=== PATIENT | female | born 1960 | race Caucasian/White ===

== ENCOUNTER 2018-02-21 10:49 | Outpatient (CLI) | payer OTHER, SELFPAY ==
--- NOTE | 2018-02-21 15:54 | DI.RAD_ITS ---
SYMPTOMS/DIAGNOSIS: PAIN IN LEFT HIP S/P FALL, M25.552 PELVIS AND LEFT HIP: The hip joint spaces are well maintained. There is no evidence of fracture or dislocation. IMPRESSION: Negative pelvis and left hip.
== END 2018-02-21 11:09 ==
PROVIDERS: PCP Family Medicine; Visit Provider Nurse Practitioner Family
DX: M25.552 Pain in left hip (principal); W19.XXXA Unspecified fall, initial encounter
CPT/HCPCS: 73502

== ENCOUNTER 2018-03-05 01:45 | Outpatient (CLI) | payer OTHER, SELFPAY ==
--- NOTE | 2018-03-05 16:15 | DI.MAMMO_ITS ---
SYMPTOM/DIAGNOSIS: SCREENING, Z12.31 BILATERAL SCREENING MAMMOGRAMS: Mammograms were interpreted according to the usual protocol including computer analysis with CAD system, tomosynthesis and C view imaging. Comparison is made with exams from 2013 through 2017. The breasts are composed of scattered fibroglandular densities. No suspicious masses or suspicious microcalcifications are seen. There has been no significant change. IMPRESSION: Category 1-B, negative mammogram. Yearly screening mammography is recommended. [facility] ASSESSMENT OF FINDINGS: Negative. Category 1. Patient will receive a letter notifying them of these results. BI-RADS category B. There are scattered areas of fibroglandular density.
== END 2018-03-05 02:05 ==
PROVIDERS: PCP Family Medicine; Visit Provider Nurse Practitioner Family
DX: Z12.31 Encounter for screening mammogram for malignant neoplasm of breast (principal)
CPT/HCPCS: 77063; 77067

== ENCOUNTER 2019-04-08 01:02 | Outpatient (CLI) | payer OTHER, SELFPAY ==
--- NOTE | 2019-04-08 15:47 | DI.MAMMO_ITS ---
EXAM: MG MAMMO SCREENING CLINICAL HISTORY: screening,Z12.39. TECHNIQUE: Bilateral full field digital CC and MLO mammographic images were obtained with 3D tomosyn thesis and utilizing computer aided detection (CAD). COMPARISON: Available for comparison. FINDINGS: Masses/Architectural Distortion: None seen. Microcalcifications: No suspicious pleomorphic-type are seen. Skin Thickening/Nipple Retraction: None. IMPRESSION: 1. No significant interval change with no specific features of malignancy noted. 2. Unless there is more urgent need, screening mammography is recommended, as per [place] [employer] guidelines. ACR BI-RAD Category- 1 Negative Breast Density - Category B - Scattered areas of fibroglandular density A negative radiographic report should not delay biopsy if a dominant or clinically suspicious mass is present. Up to ten percent of cancers are not identified on mammography. A negative report may reinforce clinical impression. Adenosis and dense breasts may obscure an underlying neoplasm. False positive reports average 6 to 10%. Patient will receive a letter notifying them of these results.
== END 2019-04-08 01:22 ==
PROVIDERS: PCP Family Medicine; Visit Provider Family Medicine
DX: Z12.31 Encounter for screening mammogram for malignant neoplasm of breast (principal)
CPT/HCPCS: 77063; 77067

== ENCOUNTER 2020-03-30 11:18 | Outpatient (REF) | payer BC, SELFPAY ==
--- NOTE | 2020-03-30 07:30 | PAPFT_PTH ---
PATIENT: Bibiana Bright LOC: [facility] ([facility]) U#:[id number] AGE/SX: 59/F ROOM: RE03/30/[address]: Marcela Casas APRN : 1960 BED: DIS: 03/30/2020 SPEC #: [id number] RECD: 03/30/20 13:06 STATUS: JAMESTameka RESindhu #: [id number] JIMI: 03/30/20 07:[address]: Marcela Casas DEPT: [facility] Cytology RECD BY: Archana Cole ENTERED: 03/30/20 13:06 SP TYPE: PAPFT MU DR: Elisa Barone MD Tissues: 1 - CX/ENDOCX FOR PAP SMEARS Procedures: PAP THIN PREP/UVM Screening HPV DNA PROBE Comments: [id number]
== END 2020-03-30 11:38 ==
LOC: LBN 11:18
PROVIDERS: PCP Family Medicine
DX: Z12.4 Encounter for screening for malignant neoplasm of cervix (principal); Z11.51 Encounter for screening for human papillomavirus (HPV)
CPT/HCPCS: 88142; 87624

== ENCOUNTER 2020-04-01 02:57 | Outpatient (CLI) | payer BC, SELFPAY ==
[2020-04-01 12:45] LABS: ALT 31 U/L (14-59); AST 17 U/L (15-37); Albumin 4.2 g/dL (3.4-5.0); Alkaline Phosphatase 67 U/L (46-116); Anion Gap 6.9 mmol/L (3-11); BUN 12 mg/dL (7-18); Bilirubin, Total 0.4 mg/dL (0.2-1.0); CO2 31.1 mmol/L (21.0-32.0); CREATININE 0.79 mg/dL (0.55-1.02); Calculated LDL 140 mg/dL (<100); Chloride 103 mmol/L (98-107); Cholesterol 228 mg/dL (<200); Glucose 91 mg/dL (74-106); HDL Cholesterol 51 mg/dL (40-60); Potassium 4.4 mmol/L (3.5-5.1); Sodium 141 mmol/L (136-145); Total Protein 7.1 g/dL (6.4-8.2); Triglyceride 185 mg/dL (<150)
== END 2020-04-01 03:17 ==
PROVIDERS: PCP Family Medicine
DX: Z00.00 Encounter for general adult medical examination without abnormal findings (principal); Z13.220 Encounter for screening for lipoid disorders
CPT/HCPCS: 36415; 80053; 80061

== ENCOUNTER 2020-04-13 02:32 | Outpatient (CLI) | payer BC, SELFPAY ==
--- NOTE | 2020-04-13 15:38 | DI.MAMMO_ITS ---
EXAM: MAMMO SCREENING CLINICAL HISTORY: screening,Z12.39 TECHNIQUE: Mammograms were interpreted according to the usual protocol including computer analysis w [facility] [facility] CAD system, tomosynthesis and C-view imaging. COMPARISON: 2011 through 2019 FINDINGS: The breasts are composed of scattered fibroglandular densities, Breast Density category B. No suspicious masses or suspicious microcalcifications are seen. No skin thickening or abnormal axillary lymph nodes are seen. There has been no significant change from prior exams. IMPRESSION: BI-RADS Category 1, Negative mammogram Yearly screening mammography is recommended. Breast Density - Category B, scattered fibroglandular densities. A negative radiographic report should not delay biopsy if a dominant or clinically suspicious mass is present. Up to ten percent of cancers are not identified on mammography. A negative report may reinforce clinical impression. Adenosis and dense breasts may obscure an underlying neoplasm. False positive reports average 6 to 10%. Patient will receive a letter notifying them of these results.
== END 2020-04-13 02:52 ==
PROVIDERS: PCP Family Medicine
DX: Z12.31 Encounter for screening mammogram for malignant neoplasm of breast (principal)
CPT/HCPCS: 77063; 77067

== ENCOUNTER 2020-04-19 16:08 | Outpatient (REF) | payer BC, SELFPAY ==
[2020-04-19 17:01] LABS: Bilirubin Negative (Negative); Blood Large (Negative); Clarity Cloudy (Clear); Glucose Negative (Negative); Ketones Negative (Negative); Leukocyte Esterase Small (Negative); Nitrite Positive (Negative); Specific Gravity >= 1.030 (1.005-1.025); Urobilinogen 0.2 EU/dL (Up TO 0.2); pH 6.5 (5-8)
[2020-04-19 17:13] LABS: Bacteria Many HPF (Negative); Crystals Few Calcium Oxalate HPF (Negative); Epithelial Cells Few HPF (Negative); Mucus Moderate (Negative); RBC >50 HPF (0-2)
[2020-04-19 17:14] LABS: C & S Indicated? Yes; Casts Negative LPF (Negative)
== END 2020-04-19 16:28 ==
LOC: LBN 16:08
PROVIDERS: PCP Family Medicine
DX: R30.0 Dysuria (principal)
CPT/HCPCS: 87077; 81003; 81015; 87086; 87186

== ENCOUNTER 2020-05-20 10:00 | Outpatient (REF) | payer BC, SELFPAY ==
[2020-05-20 10:21] LABS: Bilirubin Negative (Negative); Blood Small (Negative); Clarity Clear (Clear); Glucose Negative (Negative); Ketones Negative (Negative); Leukocyte Esterase Negative (Negative); Nitrite Negative (Negative); Specific Gravity 1.025 (1.005-1.025); Urobilinogen 0.2 EU/dL (Up TO 0.2)
[2020-05-20 10:34] LABS: Bacteria Negative HPF (Negative); C & S Indicated? No; Casts Negative LPF (Negative); Crystals Negative HPF (Negative); Epithelial Cells Few HPF (Negative); Mucus Negative (Negative); Other Cells Rare Renal (Negative); RBC 0-2 HPF (0-2); WBC 0-2 HPF (0-5)
== END 2020-05-20 10:01 | disposition home or self-care (01) ==
LOC: LBN 10:00
PROVIDERS: PCP Family Medicine
DX: R31.9 Hematuria, unspecified (principal)
CPT/HCPCS: 81003; 81015

== ENCOUNTER 2020-06-04 01:41 | Outpatient (CLI) | payer BC, SELFPAY ==
--- NOTE | 2020-06-04 14:00 | NS.NUTBLAN_ITS ---
59 year old female referred for medical nutrition therapy for hyperlipidemia. BMI wnl. Recent labs: chol: 228, LDL: 140, HDL: 51, tri. Bibiana reports PCP does not want to start a lipid lowering agent at this time. Will check lipids again in summer 2020. Diet recall indicates well balanced, low cholesterol meals with emphasis on complex carbs, lean protein and non starchy vegetables. Also reports walking on treadmill daily for 20 minutes. Includes good sources of healthy fats such as olive oil, nuts and avacado. Overall, Bibiana follows a heart healthy life style. Stopped smoking a couple years ago and maintains her weight with exercise and limiting junk foods. Session today reviewed principles of Mediterranean diet and encouraged continued exercise of 150 minutes per week. Provided written materials and contact information for follow up information as needed. No follow up appt scheduled at this time.
== END 2020-06-04 01:42 | disposition home or self-care (01) ==
LOC: DS 01:41
PROVIDERS: PCP Family Medicine; Visit Provider Dietitian, Registered
DX: E78.5 Hyperlipidemia, unspecified (principal); Z71.3 Dietary counseling and surveillance
CPT/HCPCS: 97802

== ENCOUNTER 2020-09-02 11:23 | Outpatient (REF) | payer BC, SELFPAY | END 2020-09-02 11:24 | disposition home or self-care (01) | LOC: LBN 11:23 | PROVIDERS: PCP Family Medicine; Visit Provider Nurse Practitioner Family | DX: N39.0 Urinary tract infection, site not specified (principal) | CPT/HCPCS: 87077; 87086; 87186 ==

== ENCOUNTER 2020-09-27 15:03 | Outpatient (CLI) | payer BC, SELFPAY ==
--- NOTE | 2020-09-27 13:30 | DI.RAD_ITS ---
Exam(s) XR THUMB LT EXAM: XR THUMB LT CLINICAL HISTORY: pain in thumb. TECHNIQUE: 2D digital imaging was performed. COMPARISON: No exams were available for comparison FINDINGS: Three dedicated views of the left thumb reveal 1-2 millimeter ossified density off the lateral aspect of the interphalangeal joint, possibly significant. The metacarpophalangeal joint appears unremarka ble. Some degenerative changes evident at the articulation between the thumb metacarpal and trapeziu m. There is no radiopaque foreign body. IMPRESSION: DATA REPOSITORY: RADIATION DOSE DELIVERED:
== END 2020-09-27 15:04 | disposition home or self-care (01) ==
LOC: DIORS 15:42
PROVIDERS: PCP Family Medicine; Referring Provider Family Medicine; Visit Provider Physician Assistant Surgical
DX: M19.042 Primary osteoarthritis, left hand (principal)
CPT/HCPCS: 73140

== ENCOUNTER 2020-11-09 09:40 | Outpatient (CLI) | payer BC, SELFPAY | END 2020-11-09 09:41 | disposition home or self-care (01) | LOC: LBO 09:41 | PROVIDERS: PCP Family Medicine; Visit Provider Physician Assistant | DX: E04.1 Nontoxic single thyroid nodule (principal) | CPT/HCPCS: 36415; 84443 ==

== ENCOUNTER 2021-06-08 01:15 | Outpatient (CLI) | payer BC, SELFPAY ==
--- NOTE | 2021-06-08 07:45 | DI.MAMMO_ITS ---
Exam(s) MAMMO SCREENING EXAM: MAMMO SCREENING CLINICAL HISTORY: screening,Z12.39. TECHNIQUE: Bilateral full field digital CC and MLO mammographic images were obtained with 3D tomosyn thesis and utilizing computer aided detection (CAD). COMPARISON: Prior mammograms were reviewed, the most recent being March 2020. FINDINGS: There has been no significant change in the appearance and distribution of the fibroglandular tissue. There are no new spiculated masses nor malignant appearing microcalcification groups. There is no significant architectural distortion nor skin thickening-retraction. IMPRESSION: No radiographic evidence of malignancy. BI-RADS Category 1 - Negative Breast Density - Category B - Scattered areas of fibroglandular density Breast density Category C or D implies that the patient has dense breast tissue. Dense breast tissue can make it harder to find cancer on a mammogram. Dense breast tissue is also associated with an incr eased risk of breast cancer. This information about the result of the mammogram report was provided to the patient to raise their awareness. Use this report when you speak with the patient about their risks for breast cancer, which includes their family history. At that time, you may recommend additional screening tests (Ultrasoun d or MRI) as these tests may add significant information. A negative radiographic report should not delay biopsy if a dominant or clinically suspicious mass is present. Up to ten percent of cancers are not identified on mammography. A negative report may reinforce clinical impression. Adenosis and dense breasts may obscure an underlying neoplasm. False positive reports average 6 to 10%. Patient will receive a letter notifying them of these results.
== END 2021-06-08 01:35 ==
DX: Z12.31 Encounter for screening mammogram for malignant neoplasm of breast (principal)
CPT/HCPCS: 77063; 77067

== ENCOUNTER 2021-06-13 14:43 | Outpatient (REF) | payer BC, SELFPAY ==
[2021-06-15 12:03] LABS: COVID-19 RT-PCR UVMMC Result Negative (Negative)
== END 2021-06-13 14:44 | disposition home or self-care (01) ==
LOC: LBN 14:43
PROVIDERS: Visit Provider Family Medicine
DX: Z20.822 Contact with and (suspected) exposure to COVID-19 (principal); R09.89 Other specified symptoms and signs involving the circulatory and respiratory systems
CPT/HCPCS: U0003

== ENCOUNTER 2021-08-09 02:44 | Outpatient (CLI) | payer BC, SELFPAY ==
[2021-08-09 13:09] LABS: ALT 33 U/L (14-59); AST 20 U/L (15-37); Albumin 4.4 g/dL (3.4-5.0); Alkaline Phosphatase 76 U/L (46-116); Anion Gap 7.9 mmol/L (3-11); BUN 10 mg/dL (7-18); Bilirubin, Total 0.3 mg/dL (0.2-1.0); CO2 30.1 mmol/L (21.0-32.0); CREATININE 0.6 mg/dL (0.55-1.02); Calcium 8.7 mg/dL (8.5-10.1); Calculated LDL 157 mg/dL (<100); Chloride 105 mmol/L (98-107); Cholesterol 234 mg/dL (<200); Glucose 98 mg/dL (74-106); HDL Cholesterol 60 mg/dL (40-60); Potassium 4.7 mmol/L (3.5-5.1); Sodium 143 mmol/L (136-145); Total Protein 7.1 g/dL (6.4-8.2); Triglyceride 86 mg/dL (<150)
== END 2021-08-09 02:45 | disposition home or self-care (01) ==
LOC: LOS 02:44
DX: E78.5 Hyperlipidemia, unspecified (principal); M32.9 Systemic lupus erythematosus, unspecified; J38.2 Nodules of vocal cords; F39 Unspecified mood [affective] disorder
CPT/HCPCS: 36415; 80053; 80061

== ENCOUNTER 2021-09-09 07:30 | Day surgery (SDC) | payer BC, SELFPAY ==
--- NOTE | 2021-09-08 14:28 | W.PM.HP.N ---
Assessment and Plan Assessment and plan (1) Tubular adenoma: Status: Acute Assessment and plan: Plan:Colonscopy w/ MAC The?patient will be scheduled by my office. The pt understands that they need to do a bowel prep and the importance of hydration during this.? The patient understands there is a theoretical risk of renal failure.? For healthy patients we use Gatorade/Miralax Prep.? ?For anyone with renal concerns- GoLytely will be used. Plavix and coumadin will need to be held except in unusual circumstances. ? Patients in A. Fib do not need to be bridged with Lovenox or on CVA prophylaxis.? A baby ASA can be continued but full dose ASA needs to be stopped for 10 days prior to the procedure. A complete H & P is required within 30 days of the procedure.? MAC is used for the colonoscopy.? Colonoscopy does not require antibiotics prophylaxis. Thank you for allowing me to participate in the care of this Patient.? A copy of the Endoscopy report will be forwarded to your office. Informed consent is obtained for the procedural (explained in simple layman's terms that?the pt and/or family could understand) explaining risks vs benefits and alternatives to the procedure and consequences if we do not do the procedure and need/rational for the procedure. Risks include but are not limited to: bleeding, infection, perforation of colon.? This would necessitate emergency surgery to repair the damage w/ possible ostomy; and other associated complications w/ the required surgery. ? Also complications of anesthesia including aspiration, KY/CVA/. I discussed with the?patient would they could expect during the procedure, post procedure and recovery time and risks.? The patient understands that they need to have a ride home after the procedure.? The patient was given all this information in writing and expressed understanding. to your office.? If there are any questions or concerns please feel free to contact our office.? (2) Tobacco use disorder: Status: Resolved (3) Systemic lupus erythematosus: Status: Acute History of Present Illness Narrative: PreOp 08/04 60 y/o female with history of lupus presents for colonoscopy screening pre-op. Her last screening was in 2016, which was remarkale for tubular adenomatous polyp. She denies a family history of colon cancer. She denies any changes in bowel habits including bloody or black tarry stools, abdominal pain, diarrhea or constipation. She denies constitutional symptoms. Denies use of marijuana or any other recreational or illegal drugs. zShe has noticed increase joint pain in hips. Hx of Lupus. She denies chest pain, palpitations, dyspnea or dyspnea with exertion. She denies prior history or family history of adverse reactions or complications with anesthesia. The patient denies any history of stroke, KY, seizures, bleeding or clotting disorders. She denies having any implanted metal in her body. Patient is here today for colonoscopy. She did complete a bowel prep. The resulting effluent is a clear yellow. She had no bleeding. She is not currently having any abdominal pain, nausea. She is not currently having any chest pain/pressure or shortness of breath. She has no productive cough or fever, I YOLIE George in the office, she has had no changes in her medication or her health status. All questions are answered to her satisfaction and she is stable for the procedure today. Review of Systems All systems reviewed & are unremarkable except as noted in HPI and below PFSH All Active Problems Colon cancer screening (Acute) Tubular adenoma (Acute 03/29/12) colonoscopy 03-31 Systemic lupus erythematosus (Acute 02/05/12) Medical History Bleeding hemorrhoid Bursitis, shoulder Cervical adenopathy CMC arthritis, thumb, degenerative Injection: 04/04/2021 COVID-19 (~04/15/21) Dysuria Gynecologic exam normal Hematuria Hyperlipidemia lupus 2004 Mood disorder Pain of left thumb Pain, eye, right Rectal bleed (07/07/13) assoc. with menses Sinusitis Vocal cord nodule Surgical History Colonoscopy - IV Sedation (08/25/16) History of bilateral ligation of fallopian tubes Family History maternal aunt Crohn's disease Father , age 78 Diabetes Heart disease COPD (chronic obstructive pulmonary disease) Mother No problems noted. Daughter No problems noted. Daughter No problems noted. Social History Smoking/Tobacco Use Status: Former Tobacco Use Quit Date: 12/10/19 Counseling given: counseling >3 minutes (on maintaining non-smoking status) Smoking risk assessment performed?: Yes Alcohol Intake: current Alcohol Intake frequency: 0-2 drinks per day Alcohol type: beer and wine Drug use: Never Substance use type: does not use Counseling given: No Counseling provided: other Caregiver/Support person: No Household members: spouse Housing: house Communication Needs: None Do you need help understanding health information?: Rarely Pets and animals: Yes (Lab) Pets and animals: dog(s) Sexually active: Yes Do you think of yourself as: straight/heterosexual Current gender identity: female What is your relationship status?: How often do you talk on the phone with friends or family?: three or more times per week How often do you get together with friends or relatives?: twice per week Do you belong to any clubs or organized social groups?: no Panel score (0-1 are the most socially isolated patients): 2 Doris/Pentecostalism: Scientologist Special doris needs: No Seatbelt use: always Helmet use: Yes Helmet use: always Drive intox or ride w/intox lokie driver: No Do you feel safe at home: Yes Do you feel safe in your relationship?: Yes Victim of physical abuse: No Victim of emotional abuse: No Victim of sexual abuse: No Would you like helpful sources: No Meds Allergies and Home Medications Allergies Allergy/AdvReac Type Severity Reaction Status Date / Time No Known Drug Allergies Allergy Verified 09/09/21 07:41 Home Medications Medication Instructions Recorded Confirmed Type bupropion HCl 150 mg 24 hr tablet, 150 mg PO QAM #90 tabs 04/04/21 09/09/21 Rx extended release bupropion HCl 300 mg 24 hr tablet, 300 mg PO QAM #90 tabs 04/04/21 09/09/21 Rx extended release Exam Narrative Exam Narrative: PHYSICAL EXAM GENERAL APPEARANCE: Alert, healthy appearance, oriented, in no acute distress SKIN: No rashes.? No breakdown HYDRATION: Well hydrated HEAD, EYES, EARS, NECK, THROAT: Head is normocephalic, pupils equal, round, reactive to light and accommodation, ocular movement intact, sclera clear and no jaundice. ?Dentition intact. No sore throat.? No jaw pain. No thrush NECK: Supple, Trachea midline. No JVD. LUNGS: normal respiration/nl chest excursion. ?Clear to auscultation B/l no R/R/W ?HEART: Regular rate and rhythm, EXTREMITY: No edema or cyanosis? no leg pain, redness, swelling.? No IV infiltration ABDOMEN: non tender to palpation, no masses or distention, no hernias. Normal bowel sounds NEURO: no focal neuro deficits.
--- NOTE | 2021-09-08 20:41 | PDOC.DSDIS_ITS ---
Discharge Plan Disposition Patient Disposition: HOME Condition: Good Discharge Details Reason For Visit: colon scope Attending Provider: Sabra Martinez Primary Care Provider: Marcela Casas Home Meds and New Rx's Prescriptions: Continued bupropion HCl 150 mg tablet extended release 24 hr 150 mg PO QAM Qty: 90 3RF bupropion HCl 300 mg tablet extended release 24 hr 300 mg PO QAM Qty: 90 3RF Discontinued bisacodyl [Dulcolax (bisacodyl)] 5 mg tablet,delayed release (DR/EC) 5 mg PO ONCE Qty: 4 0RF Rx Instructions: Take according to provider's instructions for colonoscopy prep. polyethylene glycol 3350 17 gram/dose powder 17 g PO ONCE Qty: 238 0RF Rx Instructions: To be taken as directed by prescriber's office for colonoscopy prep. Discharge Instructions Additional Instructions: DSU Colonoscopy Post- Op Instructions Instructions for Everyone who is given Anesthesia: For your safety, please do the following for the next twenty-four (24) hours: *Do Not operate a motor vehicle (car, truck, motorcycle, etc.) *Do Not drink alcoholic beverages or use any recreational drugs for the first 24 hours or while taking pain medications. The medications in your body may have a reaction that can be dangerous. *Do Not make any important decisions or sign any important papers. Findings: -Internal and external hemorrhoids -Minor diverticula -Small polyp Follow up: -My office will send a letter in 2 to 3 weeks time, detailing as to what type of polyp it is and when we want you to repeat the colonoscopy, most likely 5 to 7 years. -Make sure you are moving your bowels on a regular basis and not straining to go to the bathroom. 1. No lifting over 20 pounds or strenuous activity for the first 24 hours after your procedure. After 24 hours there are no restrictions on your activity but you may feel fatigued for a few days. 2. After you arrive home you may have a light meal and return to your normal diet as you can tolerate it without feeling sick to your stomach. 3. You may have a bloated, gaseous feeling in your belly (abdomen) after a colonoscopy. Passing gas and belching will help. Walking or lying down on your left side with your knees flexed may relieve the discomfort. Call the office at [phone] (Office) or [phone] (Hospital) right away if you notice any of the following: a.Vomiting of blood or ?coffee ground stools?. b.Rectal bleeding 1Tbsp, blood clots or continuous bleeding. c.Severe belly (abdominal) pain. d.A hard distended belly (abdomen) and an inability to pass gas. 4. Please don?t expect to have a normal BM (bowel movement) for 2-3 days after your procedure. 5. If there are questions regarding the findings of your procedure, please contact your doctor 6. If you are unable to contact your doctor with a problem, contact the hospital at [phone]. 7. Continue all your regular medications unless directed otherwise. I understand the above instructions and have no questions. Signature of Patient or Adult Escort Name of Responsible Adult Escort Signature of Nurse Date/Time Activity:: See above Diet:: See above Discharge Orders Discharge Orders: Discharge Order (Routine); Ordered 09/08/21 Ordered By: Sabra Martinez DS: Diagnosis Discharge Diagnosis (1) Tubular adenoma: Status: Acute (2) Tobacco use disorder: Status: Resolved (3) Systemic lupus erythematosus: Status: Acute
[2021-09-09 07:39] VITALS: BP 122/69; PULSE 65; RESP 16; TEMP 36.6; O2SAT 99
[2021-09-09] MEDS: Lactated Ringers 1,000 ML 80 ML IV (07:48)
--- NOTE | 2021-09-09 08:09 | W.ANESPRE ---
General Info Date of Service Date Performed: 09/09/21 Height: 5 ft 6.5 in Weight: 76.657 kg Body Mass Index (BMI): 26.9 Surgical Procedure: Operation Date: 09/09/21 08:20 Proposed Procedure Side Surgeon damian Colonoscopy Sabra Martinez DO Meds Allergies and Home Medications Allergies Allergy/AdvReac Type Severity Reaction Status Date / Time No Known Drug Allergies Allergy Verified 09/09/21 07:41 Home Medication Medication Instructions Recorded bupropion HCl 150 mg 24 hr tablet, 150 mg PO QAM #90 tabs 04/04/21 extended release bupropion HCl 300 mg 24 hr tablet, 300 mg PO QAM #90 tabs 04/04/21 extended release Current Visit Medications: Current Medications Generic Name Dose Route Start Last Admin Trade Name Freq PRN Reason Stop Dose Admin Hyoscyamine Sulfate 0.125 mg 09/08/21 09:36 Hyoscyamine 0.125 Mg Sl/Oral/Chew SL DIRECTED PRN Ringer's Solution 1,000 mls @ 80 mls/hr 09/09/21 06:00 09/09/21 07:48 IV 10/08/21 23:59 80 mls/hr INFUSION WILFRID Administration IV Miscellaneous Supplies 1 each 09/09/21 06:00 Iv Access IV 10/08/21 23:59 DIRECTED WILFRID Ondansetron HCl 4 mg 09/08/21 09:36 Ondansetron 4 Mg/2 Ml Vial IVP Q4H PRN PRN Nausea / Vomiting Sodium Chloride 0 ml 09/09/21 06:00 Normal Saline Flush 10 Ml Syr IV 10/08/21 23:59 PRN PRN Sodium Chloride 0 ml 09/09/21 06:00 Normal Saline 10 Ml Vial IJ 10/08/21 23:59 DIRECTED PRN Sterile Water 0 ml 09/09/21 06:00 Water,Injection,Sterile 10 Ml Vial IJ 10/08/21 23:59 DIRECTED PRN PFSH Active Problems Active Problems: Problem Status Onset Code Colon cancer screening Z12.11 Tubular adenoma 03/29/12 D36.9 Tobacco use disorder 05/28/12 F17.200 Systemic lupus erythematosus 02/05/12 M32.9 Medical History Medical History Bleeding hemorrhoid Bursitis, shoulder Cervical adenopathy CMC arthritis, thumb, degenerative Injection: 04/04/2021 COVID-19 (~04/15/21) Dysuria Gynecologic exam normal Hematuria Hyperlipidemia lupus 2005 Mood disorder Pain of left thumb Pain, eye, right Rectal bleed (07/07/13) assoc. with menses Sinusitis Vocal cord nodule Surgical History Surgical History Colonoscopy - IV Sedation (08/25/16) History of bilateral ligation of fallopian tubes Tobacco Smoking/Tobacco Use Status: Former Tobacco Use Passive smoking exposure: Yes Counseling given: counseling >3 minutes (on maintaining non-smoking status) Alcohol Alcohol Intake: current Alcohol intake frequency: 0-2 drinks per day Alcohol type: beer and wine Substance Use Substance use: Never Substance use type: does not use Counseling provided: other Vital Signs and Lab Results Vital Signs Most Recent Vital Signs in EMR: Most Recent Vital Signs Temp Pulse Resp BP Pulse Ox 36.6 C 65 16 122/69 99 09/09/21 07:39 09/09/21 07:39 09/09/21 07:39 09/09/21 07:39 09/09/21 07:39 Lab Results Blood Type / Crossmatch: No Data to Display Complete Blood Count: No Data to Display Complete Metabolic Panel: No Data to Display Liver Function Panel: No Data to Display Coagulation Panel: No Data to Display Cardiac Panel: No Data to Display Arterial Blood Gas: No Data to Display Venous Blood Gas: No Data to Display Pancreas Panel: No Data to Display Thyroid Panel: No Data to Display Infectious Disease: No Data to Display Blood Cultures: No Data to Display Toxicology Panel: No Data to Display Anesthesia Assessment and Plan Anesthesia History Personal History: No History of Anesthesia Complications Family History: No Family History of Anesthesia Complications Exercise Tolerance Exercise Tolerance: Metabolic Equivalents>4 Pertinent Negatives Pertinent Negatives: No Symptoms of GERD, No Major Cardiovascular Symptoms or Complaints, No Major Pulmonary Symptoms or Complaints (Quit two years ago) and No History of CVA/TIA Cardiac & Pulmonary Exam Cardiac Exam: Normal S1/S2 Heart Sounds Pulmonary Exam: Clear Bilateral Breath Sounds Implantable Cardiac Device Does patient have a Pacemaker or an ICD?: No Airway Exam Known Difficult Airway: No Mallampati Class: 2 Mouth Opening: Normal (> 3cm) Thyromental Distance: Greater than 3 cm Neck Range of Motion: Full ROM Neck Circumference: Normal Teeth Condition: Normal Dentition ASA Classification ASA Score: ASA 2 Emergency Case?: No NPO Status NPO Status: NPO Clears >2 hours, Solids >8 hours Anesthesia Plan Resuscitation Status: Full Code Anesthesia Technique: General Anesthesia Airway Planned: Natural Airway Monitors Used: Standard Monitors
[2021-09-09 08:10] VITALS: BMI 26.9
[2021-09-09 08:14] VITALS: BP 102/68; PULSE 65; RESP 17; TEMP 36.6; O2SAT 97
--- NOTE | 2021-09-09 08:37 | BOWEL_PTH ---
PATIENT: Bibiana Bright LOC: [facility] U#:[id number] AGE/SX: 61/F ROOM: RE09/09/[address]: Sabra Martinez : 1960 BED: DIS: 09/09/2021 SPEC #: [id number] RECD: 09/09/21 12:48 STATUS: RICO REQ #: [id number] JIMI: 09/09/21 08:[address]: Sabra Martinez DEPT: Surgical Specimen RECD BY: Archana Cole ENTERED: 09/09/21 12:50 SP TYPE: Bowel OTHR DR: Marcela Casas APRN Tissues: 1 - BIOPSY BOWEL Procedures: GROSS AND MICRO LEVEL 4 Comments: [id number]
--- NOTE | 2021-09-09 08:46 | W.ANESPOSTOP ---
Postoperative Evaluation Date, Time and Location Date Performed: 09/09/21 Time Performed: 08:47 Patient Location: Day Surgery Unit Vital Signs Most Recent Imported Vital Signs: Most Recent Vital Signs Temp Pulse Resp BP Pulse Ox 36.6 C 65 16 122/69 99 09/09/21 07:39 09/09/21 07:39 09/09/21 07:39 09/09/21 07:39 09/09/21 07:39 Most Recent Manually Entered Vital Signs: Adult Blood Pressure: 102/67 Heart Rate: 62 Respirations: 12 Oxygen Saturation (%): 97 Temperature (C): 36.3 C Pain Score (0-10 Scale): 0 Pain Score Most Recent Pain Score: Most Recent Pain Score Pain Level 0 09/09/21 07:39 Assessment Mental Status: Awake (Alert & Oriented to Patient Baseline) Airway and Respiratory Function: Patent airway with normal (patient baseline) respiratory exam Cardiovascular Function: Hemodynamically Stable Hydration Status: Adequately Hydrated Nausea & Vomiting: No Nausea or Vomiting Pain: Pt. Denies Any Pain Peripheral Nerve Block: Patient did not receive a nerve block
[2021-09-09 08:48] VITALS: BP 102/67; PULSE 62; RESP 12; TEMPC 36.3; O2SAT 97
--- NOTE | 2021-09-09 08:57 | W.COLOREPORT ---
Colonoscopy Report Date of procedure: 09/09/21 Pre-op diagnosis general: hx of A. polyps Post-op diagnosis procedure note: other (Internal and external hemorrhoids/diverticulitis/polyp) Surgeon: Sabra Martinez Anesthesia Type: General:No Airway Estimated blood loss (mL): 1 Pathology: other Complications: None Disposition: PACU Prep: Miralax/Dulcolax Retraction Time: 10 Procedure Description: After informed consent was obtained the patient was taken to the procedure room and placed in a left decubitous position. Monitors were applied and a time out was done. The patients name, date of , procedure, allergies to medications and metal in their body was reviewed. The patient was then sedated. Once sedated and comfortable a rectal exam was done. External exam : Minor external hemorrhoids internal exam revealed a normal sphincter tone and no palpable masses. The scope was then introduced and retrofelexed. Grade II internal hemorrhoids were identified to call him.-There also multiple old hemorrhoidal tags. The scope was then advanced to the cecum without difficulty. The TI and appendiceal orifice were identified. The prep was BB PS 3 in all segments for a total of 9. The scope was then slowly retracted over 10 minutes back into the rectum. She has a few small scattered diverticula confined in the sigmoid colon. There are no signs of bleeding or infection. She has a small 5 mm flat polyp at 20 cm. This was removed with a cold biopsy forcep. All specimen is retrieved and no bleeding is noted. At 90 cm she has a small submucosal lipoma. The scope was removed and the patient was woken up and taken back to Same day surgery in stable condition. The patient tolerated the procedure well and there were no immediate complications. Follow up: The patient should follow up in 5-7, path pending. Years unless they develop changes in bowel habits or other new gastrointestinal complaints.
[2021-09-09 09:14] VITALS: BP 127/73; PULSE 62; RESP 16; TEMP 36.3; O2SAT 99
== END 2021-09-09 09:50 | disposition home or self-care (01) ==
PROVIDERS: Visit Provider Surgery
PROC: 0DJD8ZZ Inspection of Lower Intestinal Tract, Via Natural or Artificial Opening Endoscopic (ICD-10-PCS; CPT 45378; principal; 2021-09-09 08:15)
DX: Z12.11 Encounter for screening for malignant neoplasm of colon (principal); K63.5 Polyp of colon; K64.1 Second degree hemorrhoids; K57.30 Diverticulosis of large intestine without perforation or abscess without bleeding; Z86.010 Personal history of colon polyps; F17.210 Nicotine dependence, cigarettes, uncomplicated; M32.9 Systemic lupus erythematosus, unspecified
CPT/HCPCS: 45380; 88305

== ENCOUNTER 2021-09-23 00:20 | Outpatient (CLI) | payer BC, SELFPAY ==
--- OUTSIDE RECORDS SUMMARY | 2021-09-23 00:29 | XMS_ITS | Encounter Summary ---
:1960 Author Organization [facility] Address [address] [place] [address] Care Team Providers Name Role Phone Barbra Barone MD Primary Care Provider Encounter Details Date Type Department Care Team Description 08/25/2016 Results Only [facility] Jillian HernandezDO [phone] [facility] [facility] [address] [place], [place] [phone] Social History Tobacco Use Types Packs/Day Years Used Date Never Assessed Sex Assigned at Date Recorded Not on file documented as of this encounter Plan of Treatment Not on filedocumented as of this encounter Procedures Procedure Name Priority Date/Time Associated Diagnosis Comme [facility] SURGICAL PATHOLOGY Routine 08/25/2016 6:17 EDT Re sults for this procedure are i n the results section. documented in this encounter Results SURGICAL PATHOLOGY (08/25/2016 6:17 EDT) Pathology Report: SURGICAL PATHOLOGY REPORT [facility] Reports generated via electronic interface contain clemencia ginal data; LABORATORY however they are lacking the format of the original re port. SERVICES Caution should be taken when reading/interpreting unfo rmatted reports. Name: ? LONA MAGUIRE ? Accession #: ? [id number] ? : ? 1960 (Age: 56 ) ??F ? Collect Date: ? 08/25/2016 ? Location: ? [facility] ? Receive Date: ? 08/27/19 17 ? Provider: JILLIAN HERNANDEZ DO Copy to: BARBRA BARONE MD ? Final Pathologic Diagnosis: RECTAL POLYP, BIOPSIES: - ?Fragments of hyperplastic polyp(s). Document reviewed and electronically signed by: RAQUEL PAGE MD Report ??Date: 08/29/2016 12:47 By the signature above, the attending physician certif ies that he/she has personally conducted a gross and/or microscopic examin ation of the described specimens and rendered or confirmed the above diagnosi s. Specimen(s) Received: Rectal polyp Clinical History: H/O colon polyps; clinical diagnosis code: ??Z86.010 Gross Description: ? Received in formalin labelled with proper patient identification (initials R, C) and rectal polyp are two light dan tissues (0.2 x 0.1 x 0.1 cm and 0.3 x 0.3 x 0.1 cm). Entirely submitted in 1. Ella Vaca 08/28/2016 8:05 AM End of Report Specimen Performing Organization Address City/State/ZIP Code Phon e Number [facility] [address] [place] [address] SERVICES documented in this encounter Visit Diagnoses Not on filedocumented in this encounter Care Teams Animal Anatomy Teacher Relationship Specialty Start Date End Date Barbra Barone MD PCP - General 04/21/[address] [place] [phone] documented as of this encounter
--- OUTSIDE RECORDS SUMMARY | 2021-09-23 00:29 | XMS_ITS | Encounter Summary ---
:1960 Author Organization [facility] Address [address] [place] [address] Care Team Providers Name Role Phone Unavailable Primary Care Provider Unavailable Encounter Details Date Type Department Care Team Description 03/16/2003 Results Only [facility] - Sudha Flores NP conversion [address] [place] [address] Social History Tobacco Use Types Packs/Day Years Used Date Never Assessed Sex Assigned at Date Recorded Not on file documented as of this encounter Plan of Treatment Not on filedocumented as of this encounter Procedures Procedure Name Priority Date/Time Associated Diagnosis Comme nts CYTOPATHOLOGY Routine 03/16/2003 0:00 EST Results for this procedure are i n the results section . documented in this encounter Results CYTOPATHOLOGY (03/16/2003 0:00 EST) Pathology Report: CYTOPATHOLOGY REPORT [facility] Reports generated via electronic interface contain clemencia ginal data; however they are lacking the format of the original re port. Caution should be taken when reading/interpreting unfo rmatted reports. Name: ? LONA MAGUIRE ? Accession #: ? [id number] : ? 1960 (Age: 42) ??F ?Collect Date: ? 02/17 Location: ? [facility] ? Receive Date : ? 03/18/2003 Provider: ?SUDHA JURADO MOTOR COACH DRIVER Copy to: ? Specimen/Source: ?ThinPrep Pap Test, Cervix/ Endocervix Last Menstrual Period: ? 03/05/03 ? SPECIMEN ADEQUACY ? Satisfactory for Evaluation - transformation zone component present GENERAL CATEGORIZATION ? Negative for Intraepithelial Lesion or Malignan cy ? Document reviewed and electronically signed by: ? SAMY Lopez(ASCP) ? Report Date: ??03/24/2003 10:28 End of Report Specimen Performing Organization Address City/State/ZIP Code Phon e Number [facility] [address] [place] [phone] SERVICES [facility] [address] [place] [address] documented in this encounter Visit Diagnoses Not on filedocumented in this encounter
--- OUTSIDE RECORDS SUMMARY | 2021-09-23 00:29 | XMS_ITS | Encounter Summary ---
:1960 Author Organization [facility] Address [address] [place] [address] Care Team Providers Name Role Phone Unavailable Primary Care Provider Unavailable Encounter Details Date Type Department Care Team Description 07/12/2005 Results Only [facility] - Sudha Flores NP conversion [address] [place] [address] Social History Tobacco Use Types Packs/Day Years Used Date Never Assessed Sex Assigned at Date Recorded Not on file documented as of this encounter Plan of Treatment Not on filedocumented as of this encounter Procedures Procedure Name Priority Date/Time Associated Diagnosis Comme nts CYTOPATHOLOGY Routine 07/12/2005 0:00 EDT Results for this procedure are i n the results section . documented in this encounter Results CYTOPATHOLOGY (07/12/2005 0:00 EDT) Pathology Report: CYTOPATHOLOGY REPORT [facility] Reports generated via electronic interface contain clemencia ginal data; however they are lacking the format of the original re port. Caution should be taken when reading/interpreting unfo rmatted reports. Name: ? LONA MAGUIRE ? Accession #: ? [id number] : ? 1960 (Age: 44) ??F ?Collect Date: ? 06/18 Location: ? [facility] ? Receive Date : ? 07/13/2005 Provider: ?SUDHA JURADO INSTRUCTOR OF SOCIOLOGY Copy to: ? Specimen/Source: ? ThinPrep Pap Test, Cervix/Endocervix, processed on [employer] ThinPrep Imaging System, with manual evaluation Last Menstrual Period: ? 06/28/05 Other: ? Additional clinical information: 02/18 pap HPVA - HPV testing requested if ASC-US on the current ThinPrep Pap test. ? SPECIMEN ADEQUACY ? Satisfactory for Evaluation - transformation zone component present GENERAL CATEGORIZATION ? Negative for Intraepithelial Lesion or Malignan cy ? Document reviewed and electronically signed by: ? SAMY Cabral(ASCP) ? Report Date: ??07/17/2005 13:40 End of Report Specimen Performing Organization Address City/State/ZIP Code Phon e Number [facility] [address] [place] [address] SERVICES [facility] [address] [place] [address] documented in this encounter Visit Diagnoses Not on filedocumented in this encounter
--- OUTSIDE RECORDS SUMMARY | 2021-09-23 00:29 | XMS_ITS | Encounter Summary ---
:1960 Author Organization [facility] Address [address] [place] [address] Care Team Providers Name Role Phone Barbra Barone MD Primary Care Provider Encounter Details Date Type Department Care Team Description 04/18/2013 Results Only [facility] Doe Reece , Laboratory Services - [address] SIMEON GARCÍA [address] [place] [address] [place] [address] [phone] Social History Tobacco Use Types Packs/Day Years Used Date Never Assessed Sex Assigned at Date Recorded Not on file documented as of this encounter Plan of Treatment Not on filedocumented as of this encounter Procedures Procedure Name Priority Date/Time Associated Diagnosis Comme [facility] SURGICAL PATHOLOGY Routine 04/18/2013 9:58 EST Re sults for this procedure are i n the results section. documented in this encounter Results SURGICAL PATHOLOGY (04/18/2013 9:58 EST) Pathology Report: SURGICAL PATHOLOGY REPORT [facility] Reports generated via electronic interface contain clemencia ginal data; LAB however they are lacking the format of the original re port. Caution should be taken when reading/interpreting unfo rmatted reports. Name: ? LONA MAGUIRE ? Accession #: ? [id number] ? : ? 1960 (Age: 52) ??F ? Collect Date: ? 04/18/2013 ? Location: ? [facility] ? Receive Date: ? 014 ? Provider: DOE REECE DO Copy to: BARBRA BARONE MD ? Final Pathologic Diagnosis: A. COLON, ASCENDING, POLYP, BIOPSY: - ??Fragments of tubular adenoma. B. COLON, SIGMOID, POLYP, BIOPSY: - ??Fragments of tubular adenoma. Document reviewed and electronically signed by: BRITTON NOLASCO MD Report ??Date: 04/22/2013 14:48 By the signature above, the attending physician certif ies that he/she has personally conducted a gross and/or microscopic examin ation of the described specimens and rendered or confirmed the above diagnosi s. Specimen(s) Received: A. ??Ascending colon polyp B. ??Sigmoid polyp 20 cm Clinical History: Colorectal screen Gross Description: A. ?Received in formalin labelled with proper p atient identification (initials R, C) and #1 ascending colon polyp are fiv e pink-dan tissue fragments (0.2 x 0.2 x 0.2 cm to 1.0 x 0 .2 x 0.2 cm). Entirely submitted in A1 and A2. B. ?Received in formalin labelled with proper p atient identification (initials R, C) and #2 sigmoid polyp 20 cm are two pink-dan tissue fragments (0.3 x 0.3 x 0.2 cm and 0.3 x 0.3 x 0.3 cm). Entirely submitted in B1. Zita De Leon 04/21/2013 10:35 AM End of Report Specimen Performing Organization Address City/State/ZIP Code Phon e Number [facility] [address] [place] [phone] SERVICES [facility] [address] [place] [address] documented in this encounter Visit Diagnoses Not on filedocumented in this encounter Care Teams Printing Plate Maker Relationship Specialty Start Date End Date Barbra Barone MD PCP - General 04/21/[address] [place] [phone] documented as of this encounter
--- OUTSIDE RECORDS SUMMARY | 2021-09-23 00:29 | XMS_ITS | Encounter Summary ---
:1960 Author Organization [facility] Address [address] [place] [address] Care Team Providers Name Role Phone Unavailable Primary Care Provider Unavailable Encounter Details Date Type Department Care Team Description 02/05/2013 Results Only [facility] Sudha Baxter NP Laboratory Services - [address] [phone] Social History Tobacco Use Types Packs/Day Years Used Date Never Assessed Sex Assigned at Date Recorded Not on file documented as of this encounter Plan of Treatment Not on filedocumented as of this encounter Procedures Procedure Name Priority Date/Time Associated Diagnosis Comme nts PAP TEST- RESULT Routine 02/05/2013 0:00 EST Resu lts for this ONLY procedure are i n the results section. documented in this encounter Results PAP TEST- RESULT ONLY (02/05/2013 0:00 EST) Pathology Report: CYTOPATHOLOGY REPORT [facility] Reports generated via electronic interface contain clemencia ginal data; however they are lacking the format of the original re port. Caution should be taken when reading/interpreting unfo rmatted reports. Name: ? LONA MAGUIRE ? Accession #: ? [id number] : ? 1960 (Age: 52) ??F ?Collect Date: ? 01/18 Location: ? [facility] ? Receive Date : ? 02/06/2013 Provider: ?SUDHA BAXTER KITCHEN UTILITY ASSOCIATE Copy to: ?BARBRA LEI MD ? Specimen/Source: ? Pap Test, Cervix/Endocervix, ThinPrep Imaging System with manual evaluation Last Menstrual Period: ? 01/22/2013 ? SPECIMEN ADEQUACY ? Satisfactory for Evaluation - transformation zone component present GENERAL CATEGORIZATION ? Negative for Intraepithelial Lesion or Malignan cy ? Document reviewed and electronically signed by: ? SAMY Harris(ASCP) ? Report Date: ??02/12/2013 07:39 End of Report Specimen Performing Organization Address City/State/ZIP Code Phon e Number [facility] [address] [place] [address] SERVICES [facility] [address] [place] [address] documented in this encounter Visit Diagnoses Not on filedocumented in this encounter
--- OUTSIDE RECORDS SUMMARY | 2021-09-23 00:29 | XMS_ITS | Encounter Summary ---
:1960 Author Organization [facility] Address [address] [place] [address] Care Team Providers Name Role Phone Unavailable Primary Care Provider Unavailable Encounter Details Date Type Department Care Team Description 10/05/2008 Orders Only [facility] Gali Baxter, KRYSTINA Schuster - Flora Frost [address] [address] Social History Tobacco Use Types Packs/Day Years Used Date Never Assessed Sex Assigned at Date Recorded Not on file documented as of this encounter Plan of Treatment Not on filedocumented as of this encounter Procedures Procedure Name Priority Date/Time Associated Diagnosis Comme nts CYTOPATHOLOGY Routine 10/05/2008 0:00 EDT Results for this procedure are i n the results section . documented in this encounter Results CYTOPATHOLOGY (10/05/2008 0:00 EDT) Pathology Report: CYTOPATHOLOGY REPORT ? [facility] ? LAB Reports generated via [employer] interface contain original data; ? however they are lacking the format of the original report. ? Caution should be taken when reading/interpreting unformatted reports. ? Name: ? ANDREZLONA ? Accession #: ? [id number] ? : ? 1960 (Age: 48) ??F ?Collect Date: ? 10/05/2008 ? Location: ? [facility] ? Receive Date: ? 10/06/2008 ? Provider: ?TARA M RO WLETT PROPELLER LAYOUT WORKER ? Copy to: ? Specimen/Source: ? Pap Test, Cervix/Endocervix, ThinPrep Imaging System ? with manual evaluation ? Last Menstrual Period: ? 7/5/09 ? Hormonal/Contraceptive Statu s: ? Tubal ligation ? SPECIMEN ADEQUACY ? Satisfactory for Eval uation ? - transformation zone compon ent present ? GENERAL CATEGORIZATION ? Negative for Intraepi thelial Lesion or Malignancy ? Document reviewed and electr onically signed by: ? Layla Guillaume, CT( CP)(IAC) ? Report Date: ??07/22/ 2009 15:41 ? End of Report ? Specimen Performing Organization Address City/State/ZIP Code Phon e Number [facility] [address] [place] [address] SERVICES [facility] [address] [place] [address] documented in this encounter Visit Diagnoses Not on filedocumented in this encounter
--- OUTSIDE RECORDS SUMMARY | 2021-09-23 00:29 | XMS_ITS | Encounter Summary ---
:1960 Author Organization [facility] Address [address] [place] [address] Care Team Providers Name Role Phone Elisa Barone MD Primary Care Provider Encounter Details Date Type Department Care Team Description 03/31/2020 Lab Requisition [facility] Marcela Casas, KRYSTINA Encounter for other Pathology & [address] exam[facility] Laboratory Medicine [place], [place] [address] [facility] [phone] [place], [place] [phone] (Wo rk) [phone] Social History Tobacco Use Types Packs/Day Years Used Date Never Assessed Sex Assigned at Date Recorded Not on file documented as of this encounter Plan of Treatment Not on filedocumented as of this encounter Procedures Procedure Name Priority Date/Time Associated Comments Diagnosis PAP TEST Today 03/30/2020 1:30 Encounter for other Resul ts for this EST general examination procedur e are in the results section. HUMAN PAPILLOMAVIRUS Today 03/30/2020 1:30 Encounter for ot er Results for this (HPV) DETECTION-HIGH EST general examination procedure are in RISK TYPES the results section. documented in this encounter Results HUMAN PAPILLOMAVIRUS (HPV) DETECTION-HIGH RISK TYPES (03/30/2020 1:30 EST) Human Papillomavirus NegativeComment: No Negative [facility] (HPV) Detection-High E6 or E7 mRNA is CENTER LABORATOR Y Types detected from HPV SERVICES types 16,18,31,33,35,39,45 ,51,52,56,58,59,66, and 68 by design manager mediated amplification. Specimen Pap Test - Cervix and/or Endocervix Performing Organization Address City/State/ZIP Code Phon e Number [facility] [address] [place] [address] SERVICES PAP TEST (03/30/2020 1:30 EST) Specimens A. Cervix and/or [facility] Endocervix , ThinPrep CENTER Imaging System with LABORATORY Manual Evaluation SERVICES Specimen Adequacy Satisfactory for [facility] MEDICAL Evaluation - CENTER transformation zone LABORATORY component present SERVICES General Negative for [facility] intraepithelial [place] lesion or malignancy LABORATORY SERVICES Attestation . [facility] signed by JOSS Trujillo CT(ASCP ) on SERVICES 04/09/2020 at 15 40 Clinical History See below [facility] SERVICES HPV The result for the Human Pap illomavirus (HPV) Detection-High Risk Types is Negative. No E6 or E7 mRNA is detected from HPV types 16,18,31,33,35,39,45,51,52,56,58,59,66, and 68 by design manager mediated [facility] amplification.Testing was pe rformed on specimen [id number] and was resulted on 04/09/2020 1534 EST by YUE, LAB INSTRUMENT RESULTS IN [facility] SERVICES Performing Lab [facility] LAB [facility] SERVICES Scanned Images [facility] SERVICES Specimen Pap Test - Cervix and/or Endocervix Performing Organization Address City/State/ZIP Code Phon e Number [facility] [address] [place] [address] SERVICES documented in this encounter Visit Diagnoses Diagnosis Encounter for other general examination documented in this encounter Care Teams Insurance Customer Service Specialist Relationship Specialty Start Date End Date Elisa Barone MD PCP - General 04/21/[address] [place] [phone] documented as of this encounter
--- OUTSIDE RECORDS SUMMARY | 2021-09-23 00:29 | XMS_ITS | Encounter Summary ---
:1960 Author Organization [facility] Address [address] [place] [address] Care Team Providers Name Role Phone Elisa Barone MD Primary Care Provider Encounter Details Date Type Department Care Team Description 06/13/2021 Lab Requisition [facility] Outr Resulting Lab, Pathology & Laboratory Provider [facility] [address] [place], [place] [phone] Social History Tobacco Use Types Packs/Day Years Used Date Never Assessed Sex Assigned at Date Recorded Not on file documented as of this encounter Plan of Treatment Not on filedocumented as of this encounter Procedures Procedure Name Priority Date/Time Associated Diagnosis Comme nts COVID-19 TEST [facility] Today 06/13/2021 14:00 LAB PCR EDT COVID-19 TESTING Routine 06/13/2021 14:00 Results for this EDT procedure are i n the results section. documented in this encounter Results COVID-19 TEST [facility] LAB PCR (06/13/2021 14:00 EDT) Specimen Swab Performing Organization Address City/State/ZIP Code Phon e Number [facility] [address] [place] [address] SERVICES COVID-19 TESTING (06/13/2021 14:00 EDT) COVID-19 rt-PCR Negative Negative [facility] Result Comment: CENTER LABORATORY This test has not been FDA c leared or approved. This test has been authorized by FDA under an EUA for use by authorized laboratories. This test has been authorized only for detection of nucleic acid fro SERVICES m 2018-nCoV, not for any oth er viruses or pathogens. This test is only authorized for the duration of the declaration that circumstances exist justifying the authorization of emergency use of in vitro d iagnostic tests for detectio n and/or diagnosis of 2019-nCoV under section 564(b)(1) of Act, 21 U.S.C ?? 360bbb-3(b) (1), unless the authorization is terminated or revoked sooner. Negative results do not prec lude 2019-nCoV infection and should not be used as the sole basis for treatment or other patient management decisions. Negative results must be combined with clinical observa tions, patient history, and epidemiological informatio n. Testing was performed using the kyaw SARS-CoV-2 assay ([employer] on the Kyaw 6800 System Performing Lab Kyaw 6800 [facility] Lab [facility] SERVICES Specimen Swab Performing Organization Address City/State/ZIP Code Phon e Number [facility] [address] [place] [address] SERVICES documented in this encounter Visit Diagnoses Not on filedocumented in this encounter Care Teams Rn Dialysis Relationship Specialty Start Date End Date Elisa Barone MD PCP - General 04/21/[address] [place] [phone] documented as of this encounter
--- OUTSIDE RECORDS SUMMARY | 2021-09-23 00:29 | XMS_ITS | Encounter Summary ---
:1960 Author Organization [facility] Address [address] [place] [address] Care Team Providers Name Role Phone Unavailable Primary Care Provider Unavailable Encounter Details Date Type Department Care Team Description 10/02/2007 Before PRISM Converted [facility] - Santo Baxter, Visit (Maple) Maple conversion CURTAIN MENDER [address] [place] [address] Social History Tobacco Use Types Packs/Day Years Used Date Never Assessed Sex Assigned at Date Recorded Not on file documented as of this encounter Plan of Treatment Not on filedocumented as of this encounter Procedures Procedure Name Priority Date/Time Associated Diagnosis Comme nts CYTOPATHOLOGY Routine 10/02/2007 0:00 EDT Results for this procedure are i n the results section . documented in this encounter Results CYTOPATHOLOGY (10/02/2007 0:00 EDT) Pathology Report: CYTOPATHOLOGY REPORT ? HAN ALL EN ? LAB Reports generated via electr iLumen interface contain original data; ? however they are lacking the format of the original report. ? Caution should be taken when reading/interpreting unformatted reports. ? Name: ? ANDREZLONA ? Accession #: ? [id number] ? : ? 1960 (Age: 47) ??F ?Collect Date: ? 10/02/2007 ? Location: ? [facility] ? Receive Date: ? 10/03/2007 ? Provider: ?TARA M RO WLETT CURTAIN MENDER ? Copy to: ? Specimen/Source: ? ThinPrep Pap Test, Cervix/Endocervix, processed on Cytyc ThinPrep Imaging System, wit h manual evaluation ? Last Menstrual Period: ? 7/1/08 ? SPECIMEN ADEQUACY ? Satisfactory for Eval uation ? - transformation zone compon ent present ? GENERAL CATEGORIZATION ? Negative for Intraepi thelial Lesion or Malignancy ? Document reviewed and electr onically signed by: ? Danielle Collazog, CT(ASCP) ? Report Date: ??07/24/ 2008 09:00 ? End of Report ? Specimen Performing Organization Address City/State/ZIP Code Phon e Number [facility] [address] [place] [address] SERVICES [facility] [address] [place] [address] documented in this encounter Visit Diagnoses Not on filedocumented in this encounter
--- OUTSIDE RECORDS SUMMARY | 2021-09-23 00:29 | XMS_ITS | Encounter Summary ---
:1960 Author Organization [facility] Address [address] [place] [address] Care Team Providers Name Role Phone Unavailable Primary Care Provider Unavailable Encounter Details Date Type Department Care Team Description 04/18/2013 Hospital Encounter [facility]- Flora Unknown, Provider, [facility] [address] [facility] [phone] [place] [address] (Work) [phone] Social History Tobacco Use Types Packs/Day Years Used Date Never Assessed Sex Assigned at Date Recorded Not on file documented as of this encounter Discharge Disposition Disposition Code Departure Means Destination Home or Self Correction documented in this encounter Plan of Treatment Not on filedocumented as of this encounter Visit Diagnoses Not on filedocumented in this encounter
--- OUTSIDE RECORDS SUMMARY | 2021-09-23 00:29 | XMS_ITS | Encounter Summary ---
:1960 Author Organization [facility] Address [address] [place] [address] Care Team Providers Name Role Phone Unavailable Primary Care Provider Unavailable Encounter Details Date Type Department Care Team Description 03/10/2002 Results Only [facility] - Sudha Flores NP conversion [address] [place] [address] Social History Tobacco Use Types Packs/Day Years Used Date Never Assessed Sex Assigned at Date Recorded Not on file documented as of this encounter Plan of Treatment Not on filedocumented as of this encounter Procedures Procedure Name Priority Date/Time Associated Diagnosis Comme nts CYTOPATHOLOGY Routine 03/10/2002 0:00 EST Results for this procedure are i n the results section . documented in this encounter Results CYTOPATHOLOGY (03/10/2002 0:00 EST) Pathology Report: CYTOPATHOLOGY REPORT [facility] Reports generated via electronic interface contain clemencia ginal data; however they are lacking the format of the original re port. Caution should be taken when reading/interpreting unfo rmatted reports. Name: ? LONA MAGUIRE ? Accession #: ? [id number] : ? 1960 (Age: 41) ??F ?Collect Date: ? 02/17 Location: ? [facility] ? Receive Date : ? 03/13/2002 Provider: ?SUDHA JURADO SCIENTIFIC PROGRAMMER Copy to: ? Specimen/Source: ?ThinPrep Pap Test, Cervix/ Endocervix Last Menstrual Period: ? 02/16/02 ? SPECIMEN ADEQUACY ? Satisfactory for Evaluation - transformation zone component present GENERAL CATEGORIZATION ? Negative for Intraepithelial Lesion or Malignan cy ? Document reviewed and electronically signed by: ? SAMY Harris(ASCP) ? Report Date: ??03/17/2002 15:01 End of Report Specimen Performing Organization Address City/State/ZIP Code Phon e Number [facility] [address] [place] [address] SERVICES [facility] [address] [place] [address] documented in this encounter Visit Diagnoses Not on filedocumented in this encounter
--- OUTSIDE RECORDS SUMMARY | 2021-09-23 00:29 | XMS_ITS | Clinical Summary ---
:1960 Author Organization [facility] Address [address] [place] [address] Care Team Providers Name Role Phone Elisa Barone MD Primary Care Provider Encounters Date Type Specialty Care Team Description 09/09/2021 Lab Requisition Clinical Laboratory Sabra Martinez for other M, DO general examina tion from Last 3 Months Social History Tobacco Use Types Packs/Day Years Used Date Never Assessed Sex Assigned at Date Recorded Not on file Plan of Treatment Health Maintenance Due Date Last Done Comments Hepatitis C Screen 1960 COVID-19 Vaccine (#1) 08/21/1967 Procedures Procedure Name Priority Date/Time Associated Diagnosis Comme nts SURGICAL PATHOLOGY Today 09/09/2021 8:37 EDT Encounter for o ther Results for this general examination procedur e are in the results section. from Last 3 Months Results SURGICAL PATHOLOGY (09/09/2021 8:37 EDT) Note to Patient The following [facility] pathology results CENTER have been interpreted LABORATORY by your pathologist SERVICES and may be available to you before your health provider has had the opportunity to review them. Please allow time for your provider to receive these results and explore management options, if applicable. Final Diagnosis A. COLON, 20 CM, POLYP, BIOPSY: [facility] - Hyperplastic polyp. CENTER LABORATORY SERVICES Attestation By the signature [facility] Electronica lly below, the attending CENTER signed by physician Dave certifies JOSS Cano MD on that they have 1) SERVICES 09/13/2021 at 1522 personally conducted a gross and/or microscopic examination of the described specimen(s), and/or personally interpreted the results of laboratory testing of the described specimen(s), and 2) personally rendered or confirmed the above diagnosis. Clinical History History of polyps; [facility] I/E hernia; minor CENTER divertic LABORATORY SERVICES Gross Description A. [facility] Received in formalin jordi d with proper patient identification (initials R, C) and polyp at 20 cm are two dan tissues, 0.1 by less than 0.1 by less than 0.1 cm and 0.2 x 0.1 x 0.1 cm. Entirely submitted in A1. [facility] YOLIE GOODWIN(ASCP) 09/10/2021 11:34 SE RVICES Performing Lab [facility] SERVICES Scanned Images [facility] SERVICES Specimen Tissue - Entire colon (body structure) Performing Organization Address City/State/ZIP Code Phon e Number [facility] [address] [place] [address] SERVICES from Last 3 Months Insurance Payer Benefit Plan / Subscriber ID Effective Phone Address T ype Group Dates BCBS OOS BCBS IDAHO [id number] 2020-Prese [phone] [id number] [place] [address] [address] (Home) [place], [place] [phone] (Work) Care Teams Blacksmith Hammer Operator Relationship Specialty Start Date End Date Elisa Barone MD PCP - General 04/21/[address] [place] [address]
--- OUTSIDE RECORDS SUMMARY | 2021-09-23 00:29 | XMS_ITS | Encounter Summary ---
:1960 Author Organization [facility] Address [address] [place] [address] Care Team Providers Name Role Phone Unavailable Primary Care Provider Unavailable Encounter Details Date Type Department Care Team Description 11/01/2009 Results Only [facility] Sudha Baxter, KRYSTINA Laboratory Services - [address] [phone] Social History Tobacco Use Types Packs/Day Years Used Date Never Assessed Sex Assigned at Date Recorded Not on file documented as of this encounter Plan of Treatment Not on filedocumented as of this encounter Procedures Procedure Name Priority Date/Time Associated Comments Diagnosis HPV DETECTION, HIGH Routine 11/01/2009 10:01 Resu lts for this RISK TYPES EDT procedure are i n the results section. CYTOPATHOLOGY Routine 11/01/2009 0:00 Results for this EDT procedure are i n the results section. documented in this encounter Results HUMAN PAPILLOMA VIRUS DNA TEST (11/01/2009 10:01 EDT) Specimen Description Cervix, ThinPrep [facility] vial Result Negative for HPV [facility] types 16, 18, 31, 33, 35, 39, 45, 51, 52, 56, 58, 59, and 68. Report Status Final [facility] 11/08/2009 Specimen Performing Organization Address City/State/ZIP Code Phon e Number [facility] [address] [place] [address] SERVICES [facility] [address] [place] [address] CYTOPATHOLOGY (11/01/2009 0:00 EDT) Pathology Report: CYTOPATHOLOGY REPORT ? [facility] ? LAB Reports generated via electr onic interface contain original data; ? however they are lacking the format of the original report. ? Caution should be taken when reading/interpreting unformatted reports. ? Name: ? LONA MAGUIRE ? Accession #: ? [id number] ? : ? 1960 (Age: 49) ??F ?Collect Date: ? 11/01/2009 ? Location: ? [facility] ? Receive Date: ? 11/02/2009 ? Provider: ?SUDHA M RO WLETT HAND BOOKED FOLDER AND STITCHER ? Copy to: ? Specimen/Source: ? Pap Test, Cervix/Endocervix, ThinPrep Imaging System ? with manual evaluation ? Last Menstrual Period: ? 10/11/2009 ? Other: ? HPVDX - HPV testing requeste d regardless of diagnosis on current ThinPrep Pap ?? test. ? Additional clinical informat ion: paps on file WNl ? SPECIMEN ADEQUACY ? Satisfactory for Eval uation ? - transformation zone compon ent present ? GENERAL CATEGORIZATION ? Negative for Intraepi thelial Lesion or Malignancy ? Document reviewed and electr onically signed by: ? Logan N. Fareed, CT (ASCP) ? Report Date: ??08/18/ 2010 12:03 ? End of Report ? Specimen Performing Organization Address City/State/ZIP Code Phon e Number [facility] [address] [place] [address] SERVICES [facility] [address] [place] [address] documented in this encounter Visit Diagnoses Not on filedocumented in this encounter
--- OUTSIDE RECORDS SUMMARY | 2021-09-23 00:29 | XMS_ITS | Encounter Summary ---
:1960 Author Organization [facility] Address [address] [place] [address] Care Team Providers Name Role Phone Elisa Barone MD Primary Care Provider Encounter Details Date Type Department Care Team Description 09/09/2021 Lab Requisition [facility] Sabra Martinez for other Pathology & M, DO general examination Laboratory Medicine - [address] [place] [phone] Social History Tobacco Use Types Packs/Day Years [...] procedur e are in the results section. documented in this encounter Results SURGICAL PATHOLOGY (09/09/2021 8:37 EDT) Note to Patient The following [facility] pathology results CENTER have been interpreted LABORATORY by your pathologist SERVICES and may be available to you before your health provider has had the opportunity to review them. Please allow time for your provider to receive these results and explore management options, if applicable. Final Diagnosis A. COLON, 20 CM, POLYP, BIOPSY: [facility] - Hyperplastic polyp. CENTER LABORATORY SERVICES Attestation By the signature [facility] Electronica lly below, the attending CENTER signed by Dave physician certifies JOSS Cano MD on that they have 1) SERVICES 09/13/2021 at 1522 personally conducted a gross and/or microscopic examination of the described specimen(s), and/or personally interpreted the results of laboratory testing of the described specimen(s), and 2) personally rendered or confirmed the above diagnosis. Clinical History History of polyps; [facility] I/E hernia; minor CENTER divertic LABORATORY SERVICES Gross Description A. [facility] Received in formalin jordi d with proper patient identification (initials R, C) and polyp at 20 cm are two dan tissues, 0.1 by less than 0.1 by less than 0.1 cm and 0.2 x 0.1 x 0.1 cm. Entirely submitted in A1. [facility] YOLIE GOODWIN(ASCP) 09/10/2021 11:34 SE RVICES Performing Lab [facility] SERVICES Scanned Images [facility] SERVICES Specimen Tissue - Entire colon (body structure) Performing Organization Address City/State/ZIP Code Phon e Number [facility] [address] [place] [address] SERVICES documented in this encounter Visit Diagnoses Diagnosis Encounter for other general examination documented in this encounter Care Teams Patch Press Operator Relationship Specialty Start Date End Date Elisa Barone MD PCP - General 04/21/[address] [place] [address] documented as of this encounter
--- OUTSIDE RECORDS SUMMARY | 2021-09-23 00:29 | XMS_ITS | Encounter Summary ---
:1960 Author Organization [facility] Address [address] [place] [address] Care Team Providers Name Role Phone Barbra Barone MD Primary Care Provider Encounter Details Date Type Department Care Team Description 07/14/2016 Results Only [facility]- PRISM Carissa Hopkins, [facility] [phone] [facility] [place] [address] (Wo rk) Social History Tobacco Use Types Packs/Day Years Used Date Never Assessed Sex Assigned at Date Recorded Not on file documented as of this encounter Plan of Treatment Not on filedocumented as of this encounter Procedures Procedure Name Priority Date/Time Associated Diagnosis Comme nts PAP TEST- RESULT Routine 07/14/2016 0:00 EDT Resu lts for this ONLY procedure are i n the results section. documented in this encounter Results PAP TEST- RESULT ONLY (07/14/2016 0:00 EDT) Pathology Report: CYTOPATHOLOGY REPORT [facility] Reports generated via electronic interface contain clemencia ginal data; SERVICES however they are lacking the format of the original re port. Caution should be taken when reading/interpreting unfo rmatted reports. Name: ? LONA MAUGIRE ? Accession #: ? [id number] ? : ? 1960 (Age: 55 ) ??F ?Collect Date: ? 07/14/2016 ? Location: ? [facility] ? Receive Date: ? 7 ? Provider: CARISSA HOPKINS PACKING AND FINAL ASSEMBLY SUPERVISOR Copy to: BARBRA BARONE MD ? Final Report SPECIMEN ADEQUACY ? Satisfactory for Evaluation - transformation zone component present GENERAL CATEGORIZATION ? Negative for Intraepithelial Lesion or Malignan cy INTERPRETATION ? Shift in nguyen present suggestive of bacterial vaginosis. Last Menstrual Period: 06/07/2016 Specimen/Source: ??Pap Test, Cervix, ThinPrep Imaging System with manual evaluation Document reviewed and electronically signed by: ? Nisreen Mohan, [facility](ASCP) ? Report ??Date: 07/26/2016 10:33 HPV with Pap Test ? Date Ordered: ? 07/26/2016 ? Status: ?? Signed Out ?Date Complete: ? 07/28/2016 ? By: ??Sy stem Interface ? Date Reported: ? 07/28/2016 ? Interpretation RESULT: Negative for HPV. No E6 or E7 mRNA is detected from HPV types 16,18,31,3 3,35, 39,45,51,52,56,58,59,66, and 68 by suture winder hand media autumn amplification. Comments Document reviewed and electronically signed by: ? System Interface ? Report date: 07/28/2016 By the signature above, the attending physician certif ies that he/she has personally conducted a gross and/or microscopic examin ation of the described specimens and rendered or confirmed the above diagnosi s. End of Report Specimen Performing Organization Address City/State/ZIP Code Phon e Number [facility] [address] [place] [address] SERVICES documented in this encounter Visit Diagnoses Not on filedocumented in this encounter Care Teams Flight Attendant/Inflight Supervisor Relationship Specialty Start Date End Date Barbra Barone MD PCP - General 04/21/[address] [place] [id number] documented as of this encounter
--- NOTE | 2021-09-23 07:00 | DI.RAD_ITS ---
Exam(s) XR HIP RT COMPLETE AP PELVIS EXAM: XR HIP RT COMPLETE AP PELVIS INDICATION: right hip pain, radiates down leg,tendinitis,m76.891. COMPARISON: CR XR hip LT complete AP pelvis from 02/21/2018 TECHNIQUE: 2D digital imaging was performed. Two views. FINDINGS: Hip joint spaces are well maintained. There is mild bilateral acetabular spurring. There are enthes ophytes at the iliac wings and greater trochanters. There is minimal spurring at the SI joints. IMPRESSION: Mild degenerative changes. DATA REPOSITORY: RADIATION DOSE DELIVERED:
== END 2021-09-23 00:40 ==
LOC: DI 00:21
DX: M76.891 Other specified enthesopathies of right lower limb, excluding foot (principal); M16.11 Unilateral primary osteoarthritis, right hip
CPT/HCPCS: 73502

== ENCOUNTER 2022-02-02 02:55 | Outpatient (CLI) | payer BC, SELFPAY ==
--- NOTE | 2022-02-02 13:58 | W.PROCNOTE ---
Date of service: 02/02/22 Time of Service: 13:58 Procedure Note Date of procedure: 02/02/22 Procedure: Right Hip Injection with Fluoroscopic Guidance Surgeon/Proceduralist/Physician: Andres Marti Procedure Diagnosis: Right Hip Osteoarthritis Procedure Indications: Kati has had persistent pain of the RIGHT hip and groin. Noninvasive measures have been tried. To serve as both diagnostic and therapeutic, an injection under fluoroscopy was recommended. I had discussed the risks of the procedure and the patient elected to proceed. Procedure Description: Kati was greeted in the flouroscopy room. The correct side was identified and the consent was reviewed with the patient and signed. The patient was then placed in the supine position on the fluoroscopy table. The RIGHT hip was then prepped with Chloraprep. The anterolateral injection starting point was identiifed by bony landmarks and fluoroscopy. The skin and soft tissue in the tract of the injection was anesthetized with 1% Lidocaine. A spinal needle was then inserted deep into the hip joint at the level of the lateral femoral neck under fluoroscopic guidance. A small amount of Omnipaque solution was injected to confirm intraarticular placement. Once confirmed, the hip was injected with 5cc of 0.5% Bupivicaine and 80mg of Depo-Medrol. A bandaid was placed on the injection site. The patient tolerated the procedure well.
--- NOTE | 2022-02-02 14:15 | DI.RAD_ITS ---
Exam(s) RF JOINT INJECTION FLUORO GUID EXAM: RF JOINT INJECTION FLUORO GUID CLINICAL HISTORY: R HIP INJ UNDER FLUORO,RT HIP PAIN, M25.551 TECHNIQUE: 2D and realtime digital imaging was performed. COMPARISON: No exams were available for comparison FINDINGS: Fluoroscopy was utilized by Dr. Marti during right hip injection. Hard copy shows intra-articular injection of the right hip. IMPRESSION: RADIATION DOSE DELIVERED: daphne Ontiveros=0.54 mGy Total DLP
[2022-02-02] MEDS: Bupivacaine 0.5% Pres-Free 10 ML VIAL 5 ML IJ (14:17)
[2022-02-02] MEDS: methylPREDNISolone ACETATE 80 MG/ML VIAL IM (14:18)
== END 2022-02-02 03:15 ==
LOC: DI 02:56
PROVIDERS: PCP Nurse Practitioner Family; Visit Provider Student in an Organized Health Care Education/Training Program
DX: M25.551 Pain in right hip (principal)
CPT/HCPCS: 20610; 77002; J1040

== ENCOUNTER 2022-10-27 02:34 | Outpatient (CLI) | payer BC, SELFPAY ==
[2022-10-27 14:06] LABS: TSH (W/Ref FT4) 1.57 uIU/mL (0.36-3.74)
== END 2022-10-27 02:35 | disposition home or self-care (01) ==
LOC: LBO 02:34
PROVIDERS: PCP Nurse Practitioner Family; Visit Provider Physician Assistant
DX: E04.1 Nontoxic single thyroid nodule (principal)
CPT/HCPCS: 36415; 84443

== ENCOUNTER 2023-04-17 20:23 | Outpatient (REF) | payer BC, SELFPAY | END 2023-04-17 20:24 | disposition home or self-care (01) | LOC: LBN 20:23 | PROVIDERS: PCP Nurse Practitioner Family; Visit Provider Nurse Practitioner Family | DX: N89.8 Other specified noninflammatory disorders of vagina (principal) | CPT/HCPCS: 87480; 87510; 87660 ==

== ENCOUNTER 2023-11-01 02:49 | Outpatient (CLI) | payer BC, SELFPAY ==
--- NOTE | 2023-11-01 12:50 | DI.MAMMO_ITS ---
Exam(s) MAMMO SCREENING EXAM: MAMMO SCREENING CLINICAL HISTORY: screening,z12.39 TECHNIQUE: Bilateral full field digital CC and MLO mammographic images were obtained with 3D tomosyn thesis and utilizing computer aided detection (CAD). COMPARISON: Available for comparison. FINDINGS: Masses/Architectural Distortion: There has been interval increase in size of a nodule in the upper ou ter quadrant of the left breast now measuring 6 mm. It is 7 cm from the nipple on the CC view. Microcalcifications: No suspicious pleomorphic-type are seen. Skin Thickening/Nipple Retraction: None. IMPRESSION: 1. Interval increase in size of a nodule in the upper outer quadrant of the left breast. 2. Spot compression views requested for further evaluation. Limited left breast ultrasound should be obtained at that time. BI-RADS Category 0 - Incomplete: Need additional imaging evaluation Breast Density - Category B - Scattered areas of fibroglandular density Breast density category C or D implies that the patient has dense breast tissue. Dense breast tissue is very common and is not abnormal but dense breast tissue can make it harder to find cancer on a ma mmogram. Also, dense breast tissue may increase their breast cancer risk. This information about the result of the mammogram report was provided to the patient to raise their awareness. Use this report when you speak with the patient about their risks for breast cancer, which includes their family hist ory. At that time, you may recommend for more screening tests (Ultrasound or MRI) as they might be us eful based on their risk. A negative radiographic report should not delay biopsy if a dominant or clinically suspicious mass is present. Up to ten percent of cancers are not identified on mammography. A negative report may reinforce clinical impression. Adenosis and dense breasts may obscure an underlying neoplasm. False positive reports average 6 to 10%. Patient will receive a letter notifying them of these results.
== END 2023-11-01 03:09 ==
LOC: DI 02:49
PROVIDERS: PCP Nurse Practitioner Family; Visit Provider Nurse Practitioner Family
DX: Z12.31 Encounter for screening mammogram for malignant neoplasm of breast (principal)
CPT/HCPCS: 77063; 77067

== ENCOUNTER 2023-11-06 01:31 | Outpatient (CLI) | payer BC, SELFPAY ==
--- NOTE | 2023-11-06 | DI.US_ITS ---
Exam(s) MG MAMMO SCREEN CALL BACK UNI US BREAST LT LIMITED EXAM: MG MAMMO SCREEN CALL BACK UNI CLINICAL HISTORY: F/U MAMMO, R92.8,INTERVAL INCREASE IN SIZE LT BREAST NODULE. TECHNIQUE: Craniocaudal and mediolateral oblique spot compression digital Mammography views of the l eftbreast with Tomosynthesis and left breast ultrasound. COMPARISON: 01 November 2023 and exams back to 2013 FINDINGS: Mammography/Tomosynthesis: Masses: Decreased prominence of smoothly marginated area of nodularity in the upper outer quadrant. Architectural Distortion: None seen. Microcalcifictions: No suspicious pleomorphic-type are seen. Skin Thickening/Nipple Retraction: None. Left breast US: Echotexture: Normal appearance of the glandular tissue. Shadowing: No suspicious foci. Cyst: None. Solid lesions: None seen. Ductal dilation: Minimally dilated duct 1 o'clock position 1 cm from the nipple. IMPRESSION: 1. No evidence of malignancy is noted. The findings were discussed with the patient on the date of the examination. BI-RADS Category 3 - 6 month - Probably Benign Finding: Recommend follow-up mammography in 6 months Breast Density - Category B - Scattered areas of fibroglandular density A mammogram that demonstrates density of C or D indicates the patient's breast tissue is dense. Dense breast tissue is very common and is not abnormal, but dense breast tissue can make it harder to find cancer on a mammogram. Also, dense breast tissue may increase their breast cancer risk. This informa tion about the result of the mammogram report was provided to the patient to raise their awareness. U se this report when you speak with the patient about their risks for breast cancer, which includes th eir family history. At that time, you may recommend for more screening tests (Ultrasound or MRI) as t hey might be useful based on their risk. A negative radiographic report should not delay biopsy if a dominant or clinically suspicious mass is present. Up to ten percent of cancers are not identified on mammography. A negative report may reinforce clinical impression. Adenosis and dense breasts may obscure an underlying neoplasm. False positive reports average 6 to 10%. Patient will receive a letter notifying them of these results.
== END 2023-11-06 01:51 ==
LOC: DI 01:32
PROVIDERS: PCP Nurse Practitioner Family; Visit Provider Nurse Practitioner Family
DX: Z12.31 Encounter for screening mammogram for malignant neoplasm of breast (principal); R92.8 Other abnormal and inconclusive findings on diagnostic imaging of breast
CPT/HCPCS: 76642; 77063; 77067

== ENCOUNTER 2024-02-13 11:36 | Outpatient (CLI) | payer BC, SELFPAY ==
--- NOTE | 2024-02-13 08:45 | DI.RAD_ITS ---
Exam(s) XR SHOULDER LT COMPLETE 2+V EXAM: XR SHOULDER LT COMPLETE 2+V CLINICAL HISTORY: LEFT SHOULDER PAIN. TECHNIQUE: 2D digital imaging was performed of the left shoulder. Two images were obtained. Grashe y and axillary views were obtained. COMPARISON: No exams were available for comparison FINDINGS: BONES: No acute fracture is present. No bony destructive lesion is seen. JOINTS: No dislocation present. Mild degenerative changes are seen at the acromioclavicular joint. T he glenohumeral joint is well maintained. SOFT TISSUE: Normal. IMPRESSION: Mild degenerative changes seen at the acromioclavicular joint. DATA REPOSITORY: RADIATION DOSE DELIVERED:
== END 2024-02-13 11:37 | disposition home or self-care (01) ==
LOC: DIORS 15:14
PROVIDERS: PCP Nurse Practitioner Family; Visit Provider Student in an Organized Health Care Education/Training Program
DX: M19.012 Primary osteoarthritis, left shoulder (principal)
CPT/HCPCS: 73030

== ENCOUNTER 2024-05-09 00:23 | Outpatient (CLI) | payer BC, SELFPAY ==
--- NOTE | 2024-05-09 14:47 | DI.MAMMO_ITS ---
Exam(s) MAMMO DIAGNOSTIC UNI EXAM: MAMMO DIAGNOSTIC UNI CLINICAL HISTORY: 3-6 mo f/u,R92.8,Z09,NODULE LT BREAST. TECHNIQUE: Craniocaudal and mediolateral oblique Full Field Digital Mammography views of the left br east with Computer Aided Diagnosis. COMPARISON: Comparison is made with prior examinations. FINDINGS: Mammography/Tomosynthesis: Masses/Architectural Distortion: There has been no change in size or appearance of the nodule in the upper outer left breast. There are no areas of architectural distortion. Microcalcifictions: No suspicious pleomorphic-type are seen. Skin Thickening/Nipple Retraction: None. IMPRESSION: 1. Stable appearance of the left breast nodule. 2. A six-month follow-up left mammogram is requested for re-evaluation. At that time, the patient sh ould undergo a screening mammogram of the right breast. 3. The findings were discussed with the patient on the date of the examination. BI-RADS Category 3 - 6 month - Probably Benign Finding: Recommend follow-up imaging in 6 months Breast Density - Category B - Scattered areas of fibroglandular density Breast density Category C or D implies that the patient has dense breast tissue. Dense breast tissue can make it harder to find cancer on a mammogram. Dense breast tissue is also associated with an incr eased risk of breast cancer. This information about the result of the mammogram report was provided to the patient to raise their awareness. Use this report when you speak with the patient about their risks for breast cancer, which includes their family history. At that time, you may recommend additional screening tests (Ultrasoun d or MRI) as these tests may add significant information. A negative radiographic report should not delay biopsy if a dominant or clinically suspicious mass is present. Up to ten percent of cancers are not identified on mammography. A negative report may reinforce clinical impression. Adenosis and dense breasts may obscure an underlying neoplasm. False positive reports average 6 to 10%. Patient will receive a letter notifying them of these results.
== END 2024-05-09 00:43 ==
PROVIDERS: PCP Nurse Practitioner Family; Visit Provider Nurse Practitioner Family
DX: Z09 Encounter for follow-up examination after completed treatment for conditions other than malignant neoplasm (principal); R92.8 Other abnormal and inconclusive findings on diagnostic imaging of breast
CPT/HCPCS: 77061; 77065; G0279

== ENCOUNTER 2024-05-20 11:40 | Outpatient (REF) | payer BC, SELFPAY ==
--- NOTE | 2024-05-20 15:00 | PAPFT_PTH ---
PATIENT: Bibiana Bright LOC: [facility] U#:[id number] AGE/SX: 63/F ROOM: RE05/20/[address]: Walt Hou DNP : 1960 BED: DIS: 05/20/2024 SPEC #: [id number] RECD: 05/21/24 12:47 STATUS: RICO RESindhu #: [id number] JIMI: 05/20/24 15:[address]: Walt Rosas DEPT: [facility] Cytology RECD BY: Archana Cole Tissues: 1 - CX/ENDOCX FOR PAP SMEARS Procedures: PAP THIN PREP/[facility] Screening HPV DNA PROBE Comments: [id number] (HPV 16 & 18/45)
== END 2024-05-20 11:41 | disposition home or self-care (01) ==
LOC: LBN 11:40
PROVIDERS: PCP Nurse Practitioner Family; Visit Provider Nurse Practitioner Family
DX: Z00.00 Encounter for general adult medical examination without abnormal findings (principal)
CPT/HCPCS: 88142; 87624

== ENCOUNTER 2024-10-27 08:41 | Emergency (ER) | payer OTHER, SELFPAY ==
[2024-10-27 08:44] VITALS: BP 128/64; PULSE 72; RESP 16; TEMP 36.5; O2SAT 98
--- NOTE | 2024-10-27 08:45 | DI.CT_ITS ---
Exam(s) CT HEAD CERV SPINE FACIAL WO EXAM: CT HEAD CERV SPINE FACIAL WO CLINICAL HISTORY: fall, struck L. side of face. TECHNIQUE: Imaging Protocol: Axial computed tomography images with coronal and sagittal reformatted images were created and reviewed COMPARISON: No exams were available for comparison FINDINGS: CT Head: Ventricles and Extra axial spaces: Normal in size and morphology for the patient's age. Hemorrhage: None. Cerebral parenchyma: No evidence of acute hemorrhage or acute infarct. Midline shift: None. Brainstem/Cerebellum: Normal. Calvarium: Normal. Visualized Paranasal sinuses/Mastoids: Clear. Soft Tissues: Left frontal scalp hematoma. CT Face: Facial Bones: No fracture is noted in facial bones. Sinuses and Mastoids: Unremarkable. Globes, extraocular muscles, optic nerves and retrobulbar fat: Normal. Upper aerodigestive tract: Normal. Mandible and bilateral temporomandibular joints: Normal. Soft tissues: Normal. CT Cervical Spine: Bones: No acute fracture or subluxation. There are degenerative disc changes at C5-6 and C6-7. And facet degenerative changes at C 2- 3, greater on the right. Soft Tissues: Unremarkable. Lung Apices: Clear. IMPRESSION: 1. No acute intracranial process. Frontal scalp hematoma. No skull fracture. 2. No acute fracture or subluxation in the cervical spine. 3. No acute facial fracture. RADIATION DOSE DELIVERED: 1,497.53mGy.cm Total DLP DATA REPOSITORY: All CT scans at this facility are submitted to the National Radiology Data Registry (NRDR) Dose Index Registry (DIR) with the [employer] (ACR). RADIATION OPTIMIZATION: All CT scans at this facility use at least one of these dose optimization techniques: automated exposure control; mA and/or kV adjustment per patient size (includes targeted exams where dose is matched to clinical indication); or iterative reconstruction.
--- NOTE | 2024-10-27 08:51 | W.ED.GENAD ---
Discharge Plan Disposition Patient Disposition: Home Condition: Stable Discharge Details Clinical Impression: Fall, Contusion of face, Abrasion, corneal, Laceration of face without complication Primary Care Provider: Walt Rosas ED Provider: Leonor Devine Home Meds and New Rx's Prescriptions: New moxifloxacin 0.5 % drops 2 drp ophthalmic (eye) Q6H WHILE AWAKE 7 Days Qty: 3 0RF No Action clobetasol 0.05 % solution 1 applic topical DAILY PRN (Reason: psoriasis) Qty: 50 6RF estradiol 0.01 % (0.1 mg/gram) cream 0.5 g vaginal .Twice a week Qty: 42.5 4RF Rx Instructions: use once nightly for one week, then 2-3 times per week prn dryness bupropion HCl 300 mg tablet extended release 24 hr 300 mg PO QAM Qty: 90 3RF Discharge Instructions Instructions: Laceration Repair With Glue ED Additional Instructions: You were seen in the emergency department today for evaluation after a fall. In our department a full physical examination performed, had CT imaging that did not show any bleeding in your brain or broken bones, and had an x-ray of your hand that showed no fractures. You had some small lacerations which were repaired with skin glue and Steri-Strips, these will fall off on their own. Please keep the area clean and dry, pat gently after washing, and when the glue falls off you can use [id number] antibiotic ointment and bandages. You have a small corneal abrasion, I have provided you eyedrops which you should use every 2 hours while awake for the first 2 days, then every 6 hours for the next 5 days. You can follow-up with your tool trouble shooter for reassessment. Please use therapeutic dosing of Tylenol (acetaminophen) & Advil (ibuprofen) in an alternating fashion as follows: Take 1000mg of Tylenol every 6 hours without missing doses- that is 4 times per day. [place] [facility] in between the Tylenol doses, take 600mg of Advil also on a 6 hour schedule, that is also 4 times per day. With this strategy, you will be taking something for fever/pain as often as every 3 hours. The daily maximum dosing of Tylenol is 4000mg, and the daily maximum dosing of Advil is 2400mg. Please note that some common cold medications & prescription pain medications may contain acetaminophen and you need to read OTC drug labels and factor that in to maximum daily doses. Please follow-up with your primary care provider in the next few days to discuss this visit and any symptoms that change, worsen, or persist. Thank you for allowing us to be part of your care. Stand Alone Forms: Work Release Discharge Data Discharge Date/Time-TO BE ENTERED AT DEPARTURE: 10/27/24 10:34 HPI General Mode of arrival: ambulatory. Date/Time Provider Initiated Documentation: 10/27/24 08:43. Limitations to Documentation: no limitations. Information obtained by: patient and old records reviewed. HPI Narrative: This is a 64-year-old female patient with a history of lupus, hyperlipidemia, and osteoarthritis who is presenting for evaluation of facial injury sustained during a fall. The patient reports that she was running across the concrete and tripped, falling forward onto her left sided face. She did catch herself on the outer aspect of her right hand. No loss of consciousness, the patient is not anticoagulated. She was in her normal state of health prior to this event, did not experience dizziness, chest pain, or loss of consciousness prior to the fall. Related Data Home Medications ?Medication ?Instructions ?Recorded ?Confirmed clobetasol 0.05 % scalp solution 1 applic topical DAILY PRN 05/08/23 05/20/24 psoriasis #50 mL estradiol 0.01% (0.1 mg/gram) 0.5 g vaginal .Twice a week #42.5 05/20/24 05/20/24 vaginal cream grams bupropion HCl 300 mg 24 hr tablet, 300 mg PO QAM #90 tabs 07/08/24 extended release moxifloxacin 0.5 % eye drops 2 drp ophthalmic (eye) Q6H WHILE 10/27/24 AWAKE 7 days #3 mL Previous Rx's ?Medication ?Instructions ?Recorded clobetasol 0.05 % scalp solution 1 applic topical DAILY PRN 05/08/23 psoriasis #50 mL estradiol 0.01% (0.1 mg/gram) 0.5 g vaginal .Twice a week #42.5 05/20/24 vaginal cream grams bupropion HCl 300 mg 24 hr tablet, 300 mg PO QAM #90 tabs 07/08/24 extended release moxifloxacin 0.5 % eye drops 2 drp ophthalmic (eye) Q6H WHILE 10/27/24 AWAKE 7 days #3 mL Allergies Allergy/AdvReac Type Severity Reaction Status Date / Time No Known Allergies Allergy Verified 05/20/24 13:35 General Stated Complaint: Fall/Non TraumaCriteria SHILO: 3 Exam Narrative Exam Narrative: Gen: awake and alert, in no apparent distress. Appears well nourished. HEENT: Scalp atraumatic, PERRL, EOMs full and without nystagmus. The patient does have a hematoma above the left eyebrow, and a 1 cm laceration over the bridge of the nose and over the lateral aspect of the left eyebrow, hemostatic and well-approximated. No photophobia, the patient does have some redness to the affected left eye. Midface is stable, no septal hematoma, no dental trauma. Neck: Supple, full range of motion, no observable masses Lungs: No increased work of breathing CV: Heart with regular rate and rhythm. Strong and symmetrical radial pulses. Abdomen: Soft, nondistended, non-tender to palpation. No rigidity, rebound tenderness, or guarding. MSK: No joint swelling, no redness. Full ROM without limitation, no external traumatic findings with the exception of some bruising over the 4th and 5th metacarpal region of the right hand. No tenderness to palpation of the C/T/L-spine, pelvis stable to AP compression. Skin: No rashes or lesions to visualized skin. Normal color, warm, and dry. Neuro: Cranial nerves II-XII intact and symmetrical bilaterally. 5/5 strength in all muscle groups x4 extremities. No sensory deficits. Ambulates with steady gait. Psych: Appropriate for situation. Course Vital Signs Vital signs: Vital Signs Temperature 36.5 C 10/27/24 08:44 Pulse 72 10/27/24 08:44 Respiratory Rate 16 10/27/24 08:44 Blood Pressure 128/64 10/27/24 08:44 Pulse Oximetry 98 10/27/24 08:44 Temperature 36.5 C 10/27/24 08:44 Temperature Source Tympanic 10/27/24 08:44 Pulse 72 10/27/24 08:44 Respiratory Rate 16 10/27/24 08:44 Blood Pressure 128/64 10/27/24 08:44 Blood Pressure Position Sitting 10/27/24 08:44 Pulse Oximetry 98 10/27/24 08:44 Oxygen Delivery Method Room Air 10/27/24 08:44 Oxygen Flow Rate 0 10/27/24 08:44 Pain Level 8 10/27/24 08:44 Medical Decision Making This is a 64-year-old female patient presented for evaluation of facial injury after a fall. Differential includes but is not limited to fracture, including facial bone, skull, cervical spine. Considered intracranial hemorrhage, contusion, laceration. Considered fracture of the affected right hand. This was a mechanical fall and have a low concern for medical etiology such as syncope, vasovagal syndrome, arrhythmia, ACS. I considered ocular injury including corneal abrasion, exam less consistent with traumatic iritis. I did request that the patient remove the rings off her right hand, and she states that she cannot do so and does not want them to be cut off. She has good circulation distal to these rings and I did aids counselor her to observe for signs of increasing swelling. I provided her with a dose of Tylenol, we will obtain a CT of the affected head, face, and cervical spine. Will obtain an x-ray of the affected right hand. The lacerations appear to be amenable to glue and Steri-Strips. Visual acuity is preserved and symmetrical bilaterally. - Imaging reviewed by myself, showing no intracranial hemorrhage, skull fracture or facial bone fracture, no fracture of the affected right hand. Fluorescein staining does reveal a very small area of corneal abrasion, her contact lens was not visualized in her eye and may have been dislodged. I provided the patient with moxifloxacin drops, and counseled her on conservative management of her contusions. Laceration repair with glue and Steri-Strips performed, patient tolerated the procedure well with excellent approximation achieved. At this time, the patient has had a full medical evaluation and is safe for discharge to home. They are hemodynamically stable, ambulatory, and tolerating PO. They are understanding of the follow-up plan and return precautions. They left our facility without incident. Leonor Devine MD [facility], [facility] All Active Problems (Updated 10/27/24 @ 10:15 by Leonor Devine MD) Laceration of face without complication (Acute) Abrasion, corneal (Acute) Contusion of face (Acute) Fall (Acute) Tendinitis of left rotator cuff (Acute) Cyst of left breast (Acute ~11/06/23) 11/23/23- [facility] [place] 2nd read interpretation: RT breast- normal and unchanged LT breast- Likely left breast cyst. BIRADS category 0: Incomplete-Need Imaging eval. Recommend repeating the LEFT breast ultrasound to identify a cyst or solid lesion. If this cannot be identified, a 6-month f/u mammogram is a reasonable approach unless patient desires biopsy or is at high-risk. aj Chronic rhinitis (Acute) Nasal congestion (Acute) Intention tremor (Acute) Thyroid nodule (Acute) Systemic lupus erythematosus (Acute 02/05/12) Tubular adenoma (Acute 03/29/12) colonoscopy 03-31 Right hip tendinitis (Acute) Hyperlipidemia LDL goal <100 (Chronic) ACC/AHA Risk based on 2021 Lipid Panel = 2.7%, Statin not indicated. Osteoarthritis (Chronic) Hyperplastic colon polyp (Acute) Femoroacetabular impingement of right hip (Acute) POCUS injection: 12/06/2023 Fluoroscopy injection: 02/02/2022 Scaly patch rash (Acute) Medical History Tobacco use disorder (05/28/12) QUIT 12/10/19!!!! Right shoulder pain Colon cancer screening (Unknown) Plantar warts COVID-19 (~04/15/21) Pain, eye, right CMC arthritis, thumb, degenerative Injection: 04/04/2021 Vocal cord nodule Sinusitis Cervical adenopathy Hyperlipidemia Pain of left thumb Dysuria Hematuria Bleeding hemorrhoid Gynecologic exam normal Rectal bleed (07/07/13) assoc. with menses Mood disorder lupus 2005 Bursitis, shoulder Surgical History History of tonsillectomy and adenoidectomy History of colonoscopy (~09/2021) History of bilateral ligation of fallopian tubes Colonoscopy - IV Sedation (08/25/16) Family History maternal aunt Crohn's disease Father , age 79 Diabetes Heart disease COPD (chronic obstructive pulmonary disease) Mother No problems noted. Daughter No problems noted. Daughter No problems noted. Social History (Updated 05/21/24 @ 13:38 by Luz Maria Humphreys) Smoking/Tobacco Use Status: Former Tobacco Use tobacco type: cigarettes and e-cigarettes Quit Date: 12/10/19 Pack-years: 30 Tobacco: How many years used: 30 Quit status: has quit before Second Hand Exposure: Yes Counseling given: counseling >3 minutes Smoking risk assessment performed?: Yes Alcohol Intake: current Alcohol Intake frequency: 0-2 drinks per day Alcohol type: beer and hard liquor Drug use: Never Substance use type: does not use Counseling given: No Counseling provided: other Caregiver/Support person: No Household members: spouse Housing: house Communication Needs: None Do you need help understanding health information?: Never Pets and animals: Yes (Lab) Pets and animals: dog(s) Sexually active: Yes Do you think of yourself as: straight/heterosexual Current gender identity: female What is your relationship status?: How often do you talk on the phone with friends or family?: three or more times per week How often do you get together with friends or relatives?: once per week How often do you attend bahai or oriental orthodox services?: 1-3 times per year Do you belong to any clubs or organized social groups?: no Panel score (0-1 are the most socially isolated patients): 2 What type of physical activity do you participate in: walking Duration: 30-45 minutes/day Frequency: 3-4 times per week Doris/Episcopal: Hindu Special doris needs: No Seatbelt use: always Helmet use: Yes Helmet use: always Drive intox or ride w/intox clamp truck driver: No Do you feel safe at home: Yes Do you feel safe in your relationship?: Yes Victim of physical abuse: No Victim of emotional abuse: No Victim of sexual abuse: No Would you like helpful sources: No
[2024-10-27] MEDS: Acetaminophen 500 MG TAB 1000 MG PO (09:06)
--- NOTE | 2024-10-27 09:35 | DI.RAD_ITS ---
Exam(s) XR HAND RT COMPLETE EXAM: XR HAND RT COMPLETE CLINICAL HISTORY: fall, pain bruising over 5th MC. TECHNIQUE: 2D digital imaging was performed. Three views. COMPARISON: CR XR THUMB LT from 09/27/2020 FINDINGS: BONES: No acute fracture is present. No bony destructive lesion is seen. JOINTS: No dislocation present. Degenerative changes at the 1st carpal metacarpal joint. SOFT TISSUE: Normal. IMPRESSION: Degenerative changes. No acute abnormality. DATA REPOSITORY: RADIATION DOSE DELIVERED:
[2024-10-27] MEDS: Fluorescein STRIPS 100/BOX 1 MG OP (09:54)
[2024-10-27] MEDS: Tetracaine 0.5% 4 ML BTL OP (09:54)
[2024-10-27 10:32] VITALS: BP 145/65; PULSE 55; RESP 16; O2SAT 99
== END 2024-10-27 10:34 | disposition home or self-care (01) ==
PROVIDERS: Emergency Provider Emergency Medicine; PCP Nurse Practitioner Family
DX: S00.83XA Contusion of other part of head, initial encounter (principal); S01.81XA Laceration without foreign body of other part of head, initial encounter; S05.02XA Injury of conjunctiva and corneal abrasion without foreign body, left eye, initial encounter; W19.XXXA Unspecified fall, initial encounter
CPT/HCPCS: 99284; 99283; 70450; 70486; 72125; 73130

== ENCOUNTER 2024-11-21 05:30 | Outpatient (CLI) | payer BC, SELFPAY ==
--- NOTE | 2024-11-21 09:15 | DI.MAMMO_ITS ---
Exam(s) MAMMO DIAGNOSTIC BI EXAM: MAMMO DIAGNOSTIC BI CLINICAL HISTORY: 3-6 MO ABNORMAL MAMMO/SCREEENING LEFT R92.8 Z12.31 SCREENING RIGHT Z09 TECHNIQUE: Mammograms were interpreted according to the usual protocol including computer analysis with CAD system, tomosynthesis and C-view imaging. COMPARISON: 2015 through April 2024 FINDINGS: The breasts are composed of scattered fibroglandular densities, Breast Density category B. No suspicious masses or suspicious microcalcifications are seen. Bilateral stable size and appearance of previously noted low-density circumscribed nodule in the upper outer quadrant, likely intramammary lymph node. No skin thickening or abnormal axillary lymph nodes are seen. There has been no significant change from prior exams. IMPRESSION: BI-RADS Category 2 - Benign Findings Yearly screening mammography is recommended. Breast Density - Category B - There are scattered areas of fibroglandular density. Breast density Category C or D implies that the patient has dense breast tissue. Dense breast tissue can make it harder to find cancer on a mammogram. Dense breast tissue is also associated with an increased risk of breast cancer. This information about the result of the mammogram report was provided to the patient to raise their awareness. Use this report when you speak with the patient about their risks for breast cancer, which includes their family history. At that time, you may recommend additional screening tests (Ultrasound or MRI) as these tests may add significant information. A negative radiographic report should not delay biopsy if a dominant or clinically suspicious mass is present. Up to ten percent of cancers are not identified on mammography. A negative report may reinforce clinical impression. Adenosis and dense breasts may obscure an underlying neoplasm. False positive reports average 6 to 10%. Patient will receive a letter notifying them of these results.
== END 2024-11-21 05:50 ==
PROVIDERS: PCP Nurse Practitioner Family; Visit Provider Nurse Practitioner Family
DX: Z09 Encounter for follow-up examination after completed treatment for conditions other than malignant neoplasm (principal); R92.8 Other abnormal and inconclusive findings on diagnostic imaging of breast
CPT/HCPCS: 77062; 77066; G0279